=== PATIENT | female | born 1980 | race Caucasian/White ===

== ENCOUNTER 2023-01-31 15:36 | Inpatient (IN) | payer MEDICAID, SELFPAY ==
[2023-01-31] VITALS (21 sets, daily range): BP systolic 123–165; BP diastolic 79–105; PULSE 62–84; RESP 12–24; TEMP 36.6–37; O2SAT 97–100; BMI 33.7
--- NOTE | ~2023-01-31 | US_ITS ---
US abdomen limited INDICATION: Elevated liver function tests. PROCEDURE: Realtime right upper abdominal ultrasound. COMPARISON: No prior studies for comparison. FINDINGS: The pancreas is normal without focal mass or pancreatic ductal dilation. Liver echotexture is normal without focal mass or intrahepatic biliary dilatation. There is normal directional flow i n the portal vein. The gallbladder is surgically absent. Common bile duct measures 3 mm. No sonographic Ramon's sign. IMPRESSION: 1: Normal limited abdominal ultrasound. Reviewed, dictated and finalized at location B. TMENT COORDINATOR
--- NOTE | ~2023-01-31 | CT_ITS ---
EXAMINATION: CT abdomen pelvis w con DATE: 02/03/2023 11:32 INDICATION: Abdomen and flank pain post coronary angiogram TECHNIQUE: Computed tomography (CT) of the abdomen and pelvis was performed with 100 mL Omnipaque-350 intravenous contrast. Automated exposure control and iterative reconstruction technique were employe d. The dose-length product was 760.71 mGy-cm. COMPARISON: 02/01/2023 FINDINGS: Lung bases are clear. Heart size is normal. No pericardial or pleural effusion. Small sliding-type hi atal hernia. Normal caliber common bile duct measuring up to 6 mm in diameter and mild intrahepatic b iliary ductal dilation which is within normal limits post cholecystectomy with clips the gallbladder fossa. Spleen, pancreas, bilateral adrenal glands and right kidney are normal. 1.6 similar exophytic cyst arising from the lower pole of the left kidney. Bowels including the appendix are normal. Bladde r is normal. The uterus is not identified and has likely been surgically resected. No free intraperit smyth gas or fluid. No pathologically enlarged abdominal or pelvic lymphadenopathy. There is some str anding in the right inguinal region likely related to recent vascular access for the reported coronar y angiogram. No larger loculated hematoma, active contrast extravasation, AV fistula or aneurysm. Mil d lower thoracic and minimal lumbar spondylosis. IMPRESSION: 1. No acute intra-abdominal/pelvic process. 2. Focal stranding at the right inguinal region consistent with expected changes of recent vascular a ccess. No associated hematoma, active contrast extravasation, AV fistula or aneurysm. 3. Small sliding-type hiatal hernia. Reviewed, dictated and finalized at location A. INE LEARNING INTERN IMPRESSION: 1. No acute intra-abdominal/pelvic process. 2. Focal stranding at the right inguinal region consistent with expected change s of recent vascular access. No associated hematoma, active contrast extravasat ion, AV fistula or aneurysm. 3. Small sliding-type hiatal hernia.
--- NOTE | ~2023-01-31 | XR_ITS ---
EXAMINATION: XR chest 2V 01/31/2023 16:03 INDICATION: Chest pain. CHF. PROCEDURE: 2 view chest COMPARISON: No prior studies for comparison. FINDINGS: The lungs are clear. The cardiomediastinal silhouette is within normal limits. There are no pleural effusions. There is no pneumothorax suspected. IMPRESSION: 1: NO ACUTE CARDIOPULMONARY DISEASE. Reviewed, dictated and finalized at location A. PIPELINE OPERATOR
--- NOTE | ~2023-01-31 | CT_ITS ---
EXAMINATION: CT chest abdomen pelvis wo con DATE: 02/01/2023 11:39 INDICATION: Chest and abdominal pain. TECHNIQUE: Computed tomography (CT) of the chest, abdomen, and pelvis was performed without intraveno us contrast. Automated exposure control and iterative reconstruction technique were employed. The dos e-length product was 975.89 mGy-cm. COMPARISON: None FINDINGS: CHEST CT: Lungs are clear with no pneumonia, pulmonary edema or other pulmonary infiltrates. No pleural effusio n or pneumothorax. Heart size is normal. Atherosclerotic coronary artery calcific lesion. No pericard ial effusion. Thoracic aorta is normal in caliber. No pathologically enlarged thoracic lymphadenopath y. Small sliding-type hiatal hernia. ABDOMEN/PELVIS CT: Cholecystectomy clips at the gallbladder fossa. Liver, spleen, pancreas, bilateral adrenal glands and kidneys are normal. Moderate to large amount stool scattered throughout the colon. Small bowel and a ppendix are normal. Bladder is normal. The uterus and bilateral ovaries are not identified and have l ikely been surgically resected. No free intraperitoneal gas or fluid. No pathologically enlarged abdo sandeep or pelvic lymphadenopathy. Mild thoracic spondylosis. IMPRESSION: 1. No acute intrathoracic, abdominal or pelvic process. Reviewed, dictated and finalized at location A. WOOD CUTTER
--- NOTE | 2023-01-31 15:41 | ECG_ITS ---
Measurements Intervals [place] Rate: 69 P: 71 TX: 143 QRS: 85 QRSD: 77 T: 43 QT: 392 QTc: 421 Interpretive Statements SINUS RHYTHM NORMAL ECG NO PREVIOUS ECG AVAILABLE FOR COMPARISON Electronically Signed On 02-01-2023 11:48:32 ASSISTANT PROFESSOR OF SOCIOLOGY by Boone Cheema M.D.
--- NOTE | 2023-01-31 18:16 | ED.CHESTPAIN ---
HPI - Chest Pain General Chief Complaint: Chest Pain Stated Complaint: chest pain Time Seen by Provider: 01/31/23 18:16 Source: patient Limitations: no limitations History of Present Illness HPI narrative: This is a 42 yo female who presents with complaint of chest pain that started 2 days ago and is associated with shortness of breath. She has had a non productive cough. Pain radiates to left arm and left jaw. 10/10 in severity. It has been occuring intermittently with episodes lasting approximately 20 minutes. No fevers but clammy. Lying on her right side with her knees up helps. She has not been taking care of herself or her health for some time while caring for her who of cancer in hospice care. She has been nauseated. This has never happened before. Does not follow with a dowel machine operator. Attempted to undergo a stress test years ago but terminated due to neuropathy. At one time was told eh had CHF but is not taking any medications other than her gabapentin. Not on aspirin. No LE edema. Quit smoking in the past 6 weeks, previously 1/3 PPD. Never diagnosed with HTN or HLD. Reports history of TIA x3. Related Data Home Medications Medication Instructions Recorded Confirmed gabapentin 600 mg tablet 600 mg PO BID 01/31/23 01/31/23 Allergies Allergy/AdvReac Type Severity Reaction Status Date / Time butorphanol [From Stadol] Allergy Hives Verified 02/01/23 03:24 cephalexin [From Keflex] Allergy Seizure Verified 01/31/23 18:59 nalbuphine [From Nubain] Allergy Aggression Verified 02/01/23 03:24 lisinopril AdvReac Swelling Verified 02/01/23 03:24 of the Eyes [facility] Past Medical History Medical History (Updated 02/02/23 @ 02:39 by Marina Loaiza MD) Bladder prolapse No surgical intervention History of biliary stent insertion History of CHF (congestive heart failure) Peripheral neuropathy Tobacco dependence in remission Surgical History Surgical History History of total hysterectomy with bilateral salpingo-oophorectomy (BSO) History of tubal ligation Family History Family History Mother , at 59 years old Family history of premature CAD, Onset Age: 29 Hx of CABG, Onset Age: 47 Diabetes mellitus COPD (chronic obstructive pulmonary disease) with emphysema CHF (congestive heart failure) Grandparent Family history of premature CAD Father Unknown family medical history Social History Social History (Updated 02/02/23 @ 02:32 by Marina Loaiza MD) Social History: The patient lives alone in [facility]. She is in the area visiting friends. She has been since 2020. She had 3 biologic children and adopted 1 child. Her only living child suffers from severe depression and psychiatric illness. She lost 1 child at at 8 months gestation and another due to drug overdose. Her adopted child from trauma. She smoked 1/3 to 1/4 pack of cigarettes per day from her early 20s but quit smoking November 2022. Has grandchildren. Code status: Full code Surrogate decision maker: Babs (sister) Smoking packs per day: 0.25 Smoking cigarettes per day: 5.0 Years smoked: 20 Smoking pack-years: 5.00 Smoking status: Former smoker Tobacco type: cigarettes Second hand tobacco smoke exposure: Yes Smoking end date: 12/23/22 Alcohol intake: current Alcohol use details: She occasionally drinks alcohol but only in small amounts or moderation. Substance use: current Substance use type: marijuana Other substance usage details: Marijuana occasionally, Wine once or twice a year Last use: Thanksgiving Lack of Transportation: YES Lack of Food: Never True Current Housing: I Have Housing Concerned About Future Housing: No Difficulty Paying Gas/Electric Bills: No Difficulty Paying for Meds: No Currently Unemployed: No Educati
[2023-01-31 18:35] LABS: Basophils Absolute Auto 0.1 K/mm3 (0.0-0.1); Basophils Percent Auto 0.7 % (0.2-1.2); Eosinophils Absolute Auto 0.1 K/mm3 (0-0.3); Eosinophils Percent Auto 1.3 % (0-4.4); Hematocrit 43.9 % (37.0-47.0); Hemoglobin 14.3 g/dL (12.0-15.0); Immature Granulocyte Absolute 0.03 K/mm3 (0.00-0.031); Immature Granulocyte Percent A 0.4 % (0-0.5); Lymphocytes Absolute Auto 2.75 K/mm3 (0.9-3.2); Lymphocytes Percent Auto 36.3 % (18.3-44.2); Mean Corpuscular HGB Conc 32.6 g/dl (32-36); Mean Corpuscular Hemoglobin 29.9 pg (26-34); Mean Corpuscular Volume 91.8 fl (80-100); Mean Platelet Volume 9.4 fl (7.4-10.4); Monocytes Absolute Auto 0.5 K/mm3 (0.1-0.6); Monocytes Percent Auto 6.3 % (2.6-8.5); Neutrophils Absolute Auto 4.2 K/mm3 (1.3-6.7); Platelet Count Result 320 k/mm3 (150-375); Red Blood Count 4.78 M/mm3 (4.2-5.4); Red Cell Distribution Width 12.7 % (11.5-14.5); White Blood Count 7.6 K/mm3 (4.5-10.0)
[2023-01-31 18:44] LABS: INR 0.9; Prothrombin Time 12.1 Seconds (11.1-14.7)
[2023-01-31 18:45] LABS: Partial Thromboplastin Time 27.2 SECONDS (22.3-36.8)
[2023-01-31 18:49] LABS: Alanine Aminotransferase 26 U/L (6-35); Alkaline Phosphatase 135 U/L (38-126); Anion Gap 7 mmol/L (8-16); Aspartate Amino Transferase 31 U/L (14-36); Bilirubin,Total 0.6 mg/dL (0.2-1.3); Blood Urea Nitrogen 22 mg/dL (7-17); Calcium 8.9 mg/dL (8.4-10.2); Carbon Dioxide 26 mmol/L (22-30); Chloride 104 mmol/L (98-107); Estimated Glomerular Filt Rate > 60; Glucose 248 mg/dL (65-110); Lipase 146 U/L (23-300); Potassium 4.4 mmol/L (3.4-5.0); Sodium 137 mmol/L (137-145)
[2023-01-31] MEDS: ASPIRIN 81 MG CHEWABLE TABLET 324 MG PO (19:02)
[2023-01-31] MEDS: ACETAMINOPHEN 500 MG TABLET 1000 MG PO (19:02)
[2023-01-31] MEDS: ONDANSETRON INJ 4 MG/2 ML VIAL IV PUSH (19:03)
[2023-01-31 19:11] LABS: Troponin I 0.087 ng/mL (0.000-0.034)
--- NOTE | 2023-01-31 19:26 | PC.NURSE ---
Report received from SOUMYA Barry. Assumed care of patient at this time.
[2023-01-31 19:31] LABS: NT Pro B Type Natriuretic Pept 279 pg/mL (19.9-100)
[2023-01-31 19:49] LABS: Hemoglobin A1C 9.8 % (<5.7)
[2023-01-31 19:52] LABS: Cholesterol 194 mg/dL (0-200); HDL Direct 61 mg/dL; LDL Cholesterol Direct 95 mg/dL; Triglycerides 186 mg/dL (<150)
[2023-01-31] MEDS: ENOXAPARIN 80 MG/0.8 ML SYRINGE 75 MG SUB-Q (20:15)
--- NOTE | 2023-01-31 21:21 | PC.NURSE ---
Attempted to call report, was told RN will call back.
--- NOTE | 2023-01-31 21:35 | PC.NURSE ---
VORB per given 1 Nitro SL.
--- NOTE | 2023-01-31 21:37 | PC.NURSE ---
1 nitro SL tab given at 2136 per MATHEUS Atkins who is at bedside for patients c/o cp.
--- NOTE | 2023-01-31 21:59 | ADMGEN ---
This patient, Hannah Granados, was admitted to IMU Room 205-02 on 01/31/23 at 2149. Patient/family oriented to hospital policies and general routines including ID bracelet, bed and alarms, visiting hours, pain management, procedures, bathroom and other care routines, personal items, smoking policy, room service/diet, and visiting hours. Information on how to activate the Rapid Response Team has been discussed. Patient/Family are encouraged to report perceived risks to care and to ask questions if they do not understand what they are told or what they should do.
[2023-01-31 22:08] LABS: Glucose Point of Care 189 mg/dl (65-105)
--- NOTE | 2023-01-31 22:57 | ECG_ITS ---
Measurements Intervals [place] Rate: 66 P: 75 HI: 144 QRS: 79 QRSD: 86 T: 46 QT: 426 QTc: 448 Interpretive Statements SINUS RHYTHM NORMAL ECG COMPARED TO ECG 01/31/2023 15:47:12 NO SIGNIFICANT CHANGES Electronically Signed On 02-01-2023 11:53:38 HYPO DIPPER by Boone Cheema M.D.
[2023-01-31] MEDS: NITROGLYCERIN OINTMENT 1 INCH DOSE TRANSDERM (23:08)
[2023-01-31] MEDS: NITROGLYCERIN SL 0.4 MG TABLET SUBLINGUAL (23:08)
[2023-01-31] MEDS: LACTATED RINGERS 1,000 ML 125 ML IV CONT (23:10)
--- NOTE | 2023-01-31 23:13 | PC.NURSE ---
While obtaining admission questions, patient developed sudden onset of 10/10 chest pain radiating to the left neck and jaw. Dr. Valencia notified, NTG SL X1 given, B/P 126/79, NSR 73. 1 inch NTG paste applied to left chest, EKG done. Chest pain 5/10 after SL NTG, and subsided after NTG paste applied. Lab here attempting to draw 3 hour troponin.
--- NOTE | 2023-01-31 23:18 | PM.IMHP ---
H&P: HPI History of Present Illness Date/Time: 01/31/23 21:25 Chief Complaint: Chest pain Narrative: 42-year-old female with a past medical history of COPD, peripheral neuropathy and ?borderline diabetes? who presented to the ER with left chest pain jaw pain and arm pain. Patient reports that she began having chest pain at rest yesterday. It woke her from sleep. Pain was a 10/10 intensity at its worse is accompanied by nausea and diaphoresis. She felt heaviness in her chest. The pain with last for 10-15 minutes and then would resolve. She denies any heartburn symptoms. She does have a significant family history of premature coronary artery disease with her maternal grandmother having her 1st heart attack at age 32 and her mother having her 1st heart attack at age 29. Her mother had a CABG at age 47. The patient reports that she has been told that her the sugars are borderline for diabetes in the past. She does have peripheral neuropathy managed with Neurontin She has poor dentition is unchanged from baseline. She is a former smoker she quit smoking 6 weeks ago. Prior to quitting she smoked 1/3 to 1/4 pack per day. At the time of my evaluation she was reporting 10/10 pain that started in the left jaw all going down the left neck down her left shoulder into her arm and radiated to the substernal area. Pain was relieved with nitro. She denies prior history of known coronary artery disease. The patient reports that after chest pain resolves she feels extremely fatigued. Patient lives in [facility] and has been in the area for last 2 weeks visiting friends. Review of Systems Review of Systems: 12 systems were reviewed with pertinent positives and negatives per HPI. Except as documented in the HPI, all other systems were reviewed and are negative. [facility] Past Medical History Medical History (Updated 01/31/23 @ 23:45 by Shannon Valencia DO) Bladder prolapse No surgical intervention History of biliary stent insertion Peripheral neuropathy Tobacco dependence in remission Surgical History Surgical History (Updated 01/31/23 @ 23:34 by Shannon Valencia DO) History of total hysterectomy with bilateral salpingo-oophorectomy (BSO) History of tubal ligation Family History Family History (Updated 01/31/23 @ 23:36 by Shannon Valencia DO) Mother , at 59 years old Family history of premature CAD, Onset Age: 29 Hx of CABG, Onset Age: 47 Grandparent Family history of premature CAD Father Unknown family medical history Social History Social History (Updated 01/31/23 @ 23:39 by Shannon Valencia DO) Social History: The patient lives alone in [facility]. She is in the area visiting friends. She has been since 2020. She had 3 biologic children and adopted 1 child. Her only living child suffers from severe depression and psychiatric illness. She lost 1 child at at 8 months gestation and another due to drug overdose. Her adopted child from trauma. She smoked 1/3 to 1/4 pack of cigarettes per day from her early 20s but quit smoking November 2022. Code status: Full code Surrogate decision maker: Babs (sister) Smoking packs per day: 0.25 Smoking cigarettes per day: 5.0 Years smoked: 20 Smoking pack-years: 5.00 Smoking status: Former smoker Tobacco type: cigarettes Second hand tobacco smoke exposure: Yes Smoking end date: 12/23/22 Alcohol intake: current Alcohol use details: She occasionally drinks alcohol but only in small amounts or moderation. Substance use: current Substance use type: marijuana Other substance usage details: Marijuana occasionally, Wine once or twice a year Last use: Thanksgiving Lack of Transportation: YES Lack of Food: Never True Current Housing: I Have Housing Concerned About Future Housing: No Difficulty Paying Gas/Electric Bills: No Difficulty Paying for Meds: No Currently Unemployed: No Educati
[2023-02-01] VITALS (28 sets, daily range): BP systolic 91–145; BP diastolic 56–93; PULSE 57–87; RESP 12–18; TEMP 35.8–36.9; O2SAT 95–100
[2023-02-01 00:03] LABS: Troponin I 0.132 ng/mL (0.000-0.034)
[2023-02-01 00:32] LABS: Amphetamine Screen Urine Negative (Negative); Barbiturate Screen Urine Negative (Negative); Benzodiazepines Screen Urine Negative (Negative); Cannabinoid Screen Urine Negative (Negative); Cocaine Screen Urine Negative (Negative); Methadone Screen Urine Negative (Negative); Opiate Screen Urine Negative (Negative); Phencyclidine Screen Urine Negative (Negative)
[2023-02-01] MEDS: SODIUM CHLORIDE 0.9% IV 1,000 ML 100 ML IV CONT ×4 (00:56→21:43)
[2023-02-01] MEDS: ONDANSETRON INJ 4 MG/2 ML VIAL IV PUSH ×4 (02:49→17:33)
[2023-02-01 04:43] LABS: Troponin I 0.166 ng/mL (0.000-0.034)
[2023-02-01] MEDS: NITROGLYCERIN OINTMENT 1 INCH DOSE TRANSDERM (06:12)
[2023-02-01] MEDS: ACETAMINOPHEN 325 MG TABLET 650 MG PO ×2 (06:14→16:18)
[2023-02-01 08:12] LABS: Troponin I 0.196 ng/mL (0.000-0.034)
[2023-02-01 08:17] LABS: Glucose Point of Care 185 mg/dl (65-105)
[2023-02-01] MEDS: MORPHINE SULFATE (*CRX) 2 MG/ML INJ IV PUSH ×5 (08:27→20:52)
[2023-02-01] MEDS: EMPAGLIFLOZIN 10 MG TABLET PO (08:28)
[2023-02-01] MEDS: GABAPENTIN 300 MG CAPSULE 600 MG PO ×2 (08:28→20:45)
[2023-02-01] MEDS: ASPIRIN 81 MG ENTERIC TABLET PO (08:28)
[2023-02-01] MEDS: ENOXAPARIN 80 MG/0.8 ML SYRINGE 75 MG SUB-Q (08:29)
--- NOTE | 2023-02-01 09:04 | PM.CNCAR ---
Assessment and Plan Assessment and plan (1) NSTEMI (non-ST elevated myocardial infarction): Code(s): I21.4 - Non-ST elevation (NSTEMI) myocardial infarction Status: Acute Assessment and Plan: Presentation consistent with acute coronary syndrome/NSTEMI with stuttering chest pain over the preceding 2 days with more persistent chest pain nitroglycerin responsive with elevated troponin with risk factors including strong family history premature atherosclerosis, diabetes mellitus, history of tobacco abuse and hypertension. -continue aspirin 81 mg daily, initiate atorvastatin 40 mg at bedtime. -ideally, would add beta-angel therapy, however, patient has resting heart rate in the 50s to low 60s so will hold off for now monitor. -chest pain has been somewhat difficult to control although responsive to sublingual nitroglycerin. Discussed case with my interventional partner Dr. Olea who recommend transfer to ICU for nitroglycerin infusion for improved control for unstable angina. Discussed with critical care physician Dr. Gaytan who agrees. Explained plan of care to the patient. All questions answered to her satisfaction. Unfortunate, patient did receive full-dose enoxaparin 75 mg subcutaneous. We discussed increase bleeding complication risk should she proceed to coronary angiography at this time yet if symptoms are severe, unrelenting and or her clinical circumstances dictates more urgent coronary angiography we will proceed as warranted. However, preference would be to control her symptoms if possible and allow enoxaparin to wear off to reduce bleeding complication risk. Patient verbalized understanding and agreed with plan of care. We discussed the high risk nature of her clinical circumstances with evidence of active injury pattern with elevated troponin and ongoing symptoms. Her repeat ECG bedside is normal without acute ischemic changes or ST elevation which is reassuring. Nonetheless, if we are unable to control her symptoms or hemodynamic instability or new concerning ECG changes will proceed to urgent angiography. We discussed the high risk nature of the circumstance of the need for close observation. She will notify us immediately should she have progressive chest pain or new concerning symptoms as instructed. -repeat troponin -discontinue enoxaparin. If systemic anticoagulation to be continued in the interval heparin infusion will be preferable for this could not be initiated until this evening around 2029. -keep NPO for now. -2D echocardiogram to assess LV function/wall motion abnormality, valve pathology pulmonary pressures. -continue telemetry. I spent 83 minutes in the care of this patient including examination and discussions at bedside with patient, consultation and discussion with colleagues and the treatment team, chart review, medical decision-making, and documentation. (2) Hypertension associated with chronic kidney disease due to type 2 diabetes mellitus: Code(s): E11.22 - Type 2 diabetes mellitus with diabetic chronic kidney disease; I12.9 - Hypertensive chronic kidney disease with stage 1 through stage 4 chronic kidney disease, or unspecified chronic kidney disease Status: Acute Assessment and Plan: BP improved from admission. Patient has reported lisinopril/ARIELLE-inhibitor allergy. Consider ARB if BP suboptimally controlled. (3) Family history of premature CAD: Code(s): Z82.49 - Family history of ischemic heart disease and other diseases of the circulatory system Status: Acute Assessment and Plan: Reports strong family history premature atherosclerosis with mother having acute cardiovascular event in her late 20s, bypass surgery in her 40s and dying of cardiac complications in her late 50s. Aggressive medical management as above. (4) Hypertriglyceridemia: Code(s): E78.1 - Pure hyperglyceridemia Status: Acute Assessment and Plan: Goal LDL less than 70. Initiate a
[2023-02-01] MEDS: NITROGLYCERIN SL 0.4 MG TABLET SUBLINGUAL ×2 (09:20→09:47)
--- NOTE | 2023-02-01 09:23 | ECG_ITS ---
Measurements Intervals [place] Rate: 71 P: 68 PA: 142 QRS: 72 QRSD: 82 T: 36 QT: 421 QTc: 459 Interpretive Statements SINUS RHYTHM NORMAL ELECTROCARDIOGRAM COMPARED TO ECG 01/31/2023 23:01:59 NO SIGNIFICANT CHANGES Electronically Signed On 02-02-2023 15:29:05 LEADERSHIP INTERN by Arturo Rea M.D.
--- NOTE | 2023-02-01 09:30 | PC.NURSE ---
This patient, Hannah Granados, was transferred to ICU 1 on 02/01/23 at 0930. Personal belongings sent with patient. Report given to April DOOLEY. Appropriate documentation sent with patient.
--- NOTE | 2023-02-01 09:35 | PC.NURSE ---
This patient, Hannah Granados, was received from [ 205-2] on 02/01/23 at 0935. Patient/family oriented to unit policies and routines
[2023-02-01] MEDS: NITROGLYCERIN/D5W 200 MCG/ML 50 MG/250 ML BTL IV CONT (09:50)
[2023-02-01 10:30] LABS: Troponin I 0.185 ng/mL (0.000-0.034)
--- NOTE | 2023-02-01 10:59 | WPDCNINT ---
Assessment and Plan Assessment and plan (1) NSTEMI (non-ST elevated myocardial infarction): Code(s): I21.4 - Non-ST elevation (NSTEMI) myocardial infarction Status: Acute Assessment and Plan: Patient with substernal chest pain associated with diaphoresis, nausea, shortness of breath. Radiating to the left arm. -strong family history -flat troponins -no EKG changes -appreciate cardiology evaluation and recommendations -will start nitroglycerin infusion evaluate her chest pain -patient stated that she may have had gallstones, will check CT scan of the abdomen and pelvis without contrast -echocardiogram has been ordered -continue aspirin, -on therapeutic Lovenox -morphine for pain (2) Type 2 diabetes mellitus: Qualifiers: Diabetes mellitus regional intermodal truck driver insulin use: without long-term use Diabetes mellitus complication status: with hyperglycemia Qualified Code(s): E11.65 - Type 2 diabetes mellitus with hyperglycemia Code(s): E11.9 - Type 2 diabetes mellitus without complications Status: Acute Assessment and Plan: Will add Accu-Cheks and sliding scale in (3) Hyperlipidemia: Code(s): E78.5 - Hyperlipidemia, unspecified Status: Acute Assessment and Plan: Continue statin Plan DVT prophylaxis: Therapeutic Lovenox Stress ulcer prophylaxis: Not indicated Nutrition: NPO Code Status: Full Critical Care Time Spent: 47 minutes Due to a high probability of clinically significant, life threatening deterioration, the patient required my highest level of preparedness to intervene emergently and I personally spent this critical care time directly and personally managing the patient. This critical care time included obtaining a history; examining the patient; pulse oximetry; ordering and review of studies; arranging urgent treatment with development of a management plan; evaluation of patient's response to treatment; frequent reassessment; and discussions with other providers. It was exclusive of separately billable procedures and treating other patients and teaching time. Please see Assessment and Plan section and the rest of the note for further information on patient assessment and treatment This dictation may have been done utilizing a voice recognition system. Attempts have been made to correct errors. However, there may be uncorrected grammatical, spelling, and recognitions errors present. Crtts Consult Note Consult date: 02/01/23 Reason for consult: Chest pain HPI: Hannah Granados is a 42 year old female past medical history of bladder prolapse, history of biliary stent placement, of neuropathy, c tobacco dependence presented the ED on 01/31/2023 S with complains of chest pain that started 1 day prior to admission, it walker from asleep, 10/10 in intensity. Accompanied with nausea, diaphoresis and radiation to the left arm. Patient has a significant family history of premature coronary artery disease. Patient was started on therapeutic Lovenox, nitro paste, beta-angel, aspirin and statin. Patient states did she quit smoking 6 weeks ago and prior to that she smoked 1/3 to 1/4 pack per day for many years. She also occasionally smokes marijuana. Denies any illicit drug use. Occasional alcohol use. Patient was admitted to the intermediate unit. On 02/01/2023: Patient continued to have increasing chest pain 10/10 in intensity despite being on nitro paste. Patient has received full-dose Lovenox this morning, cardiology evaluated the patient and transferred the patient to the ICU for nitroglycerin infusion. Patient seen and examined upon arrival to the ICU. Complains of substernal chest tightness, 10/10 intensity. Complains of mild shortness of breath, no diaphoresis but positive radiation to the left arm. Also complains of nausea but no vomiting. Patient is hemodynamically stable, still has been started on nitroglycerin infusion. Review of Systems Review of Infof[employer]e
[2023-02-01 12:38] LABS: Glucose Point of Care 173 mg/dl (65-105)
--- NOTE | 2023-02-01 13:06 | P.PCNBED_ITS ---
Procedures Central Line Placement Right Femoral: Central Line Date: 02/01/23 Central Line Time: 13:06 Discussed w/ the patient/family/POA,the placement of a central venous catheter, including its clinical necessity/indication & associated potential risks, benifits and alternatives.: Yes The patient/family/POA understand(s) and acknowledge(s) the need to proceed with central venous catheter insertion as an important element of the patient's clinical management.: Yes Consent: I have discussed with the patient and/or surrogate, the non-emergent placement of a central venous catheter, including its clinical necessity/indication and associated potential risks and complications. The patient and/or surrogate understand(s) and acknowledge(s) the need to proceed with central venous catheter insertion as an important element of the patient's clinical management. Time Out Performed: Yes Patient Position: supine Patient placed on monitor/pulse ox: Yes Provider Prep: mask, sterile gown, sterile gloves, Max. sterile barrier precautions, cap and hand hygiene with conventional soap/water or alcohol based hand rub Central line prep: 2% Chlorhexidine scrub Local anesthesia used: lidocaine 1% Amount of anesthesia used (ml): 3 Sterile US Technique with sterile gel/sterile probe covers: Yes Central line lumen inserted: triple [place]alander: 12 Length (cm): 16 Depth of Insertion (cm): 16 Post Procedure: sutured in place, good blood return, all ports aspirated, flushed, capped, transparent dressing, hemostatic product, antimicrobial product, securement product and aseptic technique maintained throughout procedure Complications: none
[2023-02-01 16:25] LABS: Glucose Point of Care 244 mg/dl (65-105)
[2023-02-01] MEDS: INSULIN ASPART (*BKC) 100 UNITS/ML SUB-Q ×2 (17:02→23:25)
--- NOTE | 2023-02-01 19:20 | ECG_ITS ---
Measurements Intervals [place] Rate: 62 P: 65 SD: 142 QRS: 76 QRSD: 83 T: 18 QT: 416 QTc: 423 Interpretive Statements SINUS RHYTHM WITH SINUS ARRHYTHMIA NORMAL ELECTROCARDIOGRAM 01/31/2023 23:01:59 NO DIFFERENCE Electronically Signed On 02-02-2023 14:59:41 REPORTING LEAD by Arturo Rea M.D.
[2023-02-01 19:53] LABS: Basophils Percent Auto 0.7 % (0.2-1.2); Eosinophils Absolute Auto 0.1 K/mm3 (0-0.3); Eosinophils Percent Auto 1.2 % (0-4.4); Hematocrit 36.4 % (37.0-47.0); Hemoglobin 11.6 g/dL (12.0-15.0); Immature Granulocyte Absolute 0.04 K/mm3 (0.00-0.031); Immature Granulocyte Percent A 0.7 % (0-0.5); Lymphocytes Absolute Auto 1.81 K/mm3 (0.9-3.2); Lymphocytes Percent Auto 31.8 % (18.3-44.2); Mean Corpuscular HGB Conc 31.9 g/dl (32-36); Mean Corpuscular Hemoglobin 29.7 pg (26-34); Mean Corpuscular Volume 93.3 fl (80-100); Mean Platelet Volume 9.5 fl (7.4-10.4); Monocytes Absolute Auto 0.5 K/mm3 (0.1-0.6); Monocytes Percent Auto 8.1 % (2.6-8.5); Neutrophils Absolute Auto 3.3 K/mm3 (1.3-6.7); Neutrophils Percent Auto 57.5 % (45.5-73.1); Platelet Count Result 288 k/mm3 (150-375); Red Cell Distribution Width 12.8 % (11.5-14.5); White Blood Count 5.7 K/mm3 (4.5-10.0)
[2023-02-01 20:03] LABS: INR 0.9; Prothrombin Time 12.8 Seconds (11.1-14.7)
[2023-02-01 20:04] LABS: Partial Thromboplastin Time 32.9 SECONDS (22.3-36.8)
[2023-02-01 20:23] LABS: Troponin I 0.118 ng/mL (0.000-0.034)
[2023-02-01] MEDS: HEPARIN SOD/D5W 100 UNITS/ML 25,000 UNITS/250 ML BAG 7 UNITS IV CONT (20:44)
[2023-02-01] MEDS: HEPARIN SODIUM 5,000 UNITS/ML VIAL 3500 UNITS IV PUSH (20:44)
[2023-02-01] MEDS: ATORVASTATIN 40 MG TABLET PO (20:53)
[2023-02-01 22:53] LABS: Glucose Point of Care 219 mg/dl (65-105)
[2023-02-02] VITALS (32 sets, daily range): BP systolic 89–150; BP diastolic 56–96; PULSE 64–86; RESP 10–20; TEMP 36.6–37.2; O2SAT 91–100; BMI 33.0
[2023-02-02] MEDS: NITROGLYCERIN/D5W 200 MCG/ML 50 MG/250 ML BTL 22.5 MG IV CONT (01:10)
[2023-02-02] MEDS: ACETAMINOPHEN 325 MG TABLET 650 MG PO ×2 (01:10→05:23)
[2023-02-02] MEDS: MORPHINE SULFATE (*CRX) 2 MG/ML INJ IV PUSH ×6 (03:57→23:49)
[2023-02-02 04:10] LABS: Basophils Percent Auto 0.5 % (0.2-1.2); Eosinophils Absolute Auto 0.1 K/mm3 (0-0.3); Eosinophils Percent Auto 1.8 % (0-4.4); Hematocrit 35.3 % (37.0-47.0); Hemoglobin 11.4 g/dL (12.0-15.0); Immature Granulocyte Absolute 0.04 K/mm3 (0.00-0.031); Immature Granulocyte Percent A 0.5 % (0-0.5); Lymphocytes Absolute Auto 1.67 K/mm3 (0.9-3.2); Lymphocytes Percent Auto 21.6 % (18.3-44.2); Mean Corpuscular HGB Conc 32.3 g/dl (32-36); Mean Corpuscular Hemoglobin 30.2 pg (26-34); Mean Corpuscular Volume 93.6 fl (80-100); Mean Platelet Volume 9.8 fl (7.4-10.4); Monocytes Absolute Auto 0.5 K/mm3 (0.1-0.6); Monocytes Percent Auto 6.7 % (2.6-8.5); Neutrophils Absolute Auto 5.3 K/mm3 (1.3-6.7); Neutrophils Percent Auto 68.9 % (45.5-73.1); Platelet Count Result 283 k/mm3 (150-375); Red Blood Count 3.77 M/mm3 (4.2-5.4); Red Cell Distribution Width 12.8 % (11.5-14.5); White Blood Count 7.7 K/mm3 (4.5-10.0)
[2023-02-02 04:21] LABS: Partial Thromboplastin Time 46.4 SECONDS (22.3-36.8)
[2023-02-02 04:34] LABS: Alanine Aminotransferase 399 U/L (6-35); Albumin Level 3.2 g/dL (3.5-5.1); Alkaline Phosphatase 156 U/L (38-126); Anion Gap 5 mmol/L (8-16); Aspartate Amino Transferase 383 U/L (14-36); Blood Urea Nitrogen 16 mg/dL (7-17); Calcium 8.5 mg/dL (8.4-10.2); Carbon Dioxide 25 mmol/L (22-30); Chloride 106 mmol/L (98-107); Estimated Glomerular Filt Rate > 60; Glucose 177 mg/dL (65-110); Phosphorus 4.6 mg/dL (2.5-4.5); Potassium 3.9 mmol/L (3.4-5.0); Sodium 136 mmol/L (137-145)
[2023-02-02] MEDS: HEPARIN SODIUM 5,000 UNITS/ML VIAL 4000 UNITS IV PUSH (05:05)
[2023-02-02] MEDS: ONDANSETRON INJ 4 MG/2 ML VIAL IV PUSH ×3 (05:23→20:33)
[2023-02-02] MEDS: SODIUM CHLORIDE 0.9% IV 1,000 ML 50 ML IV CONT (07:45)
[2023-02-02 08:09] LABS: Hepatitis B Surface Antigen Negative (Negative)
[2023-02-02 08:18] LABS: HAV RESULT Reactive (Negative); Hepatitis B Core IgM Result Negative (Negative)
[2023-02-02] MEDS: ASPIRIN 81 MG ENTERIC TABLET PO (08:21)
[2023-02-02 08:26] LABS: Hepatitis C Virus Antibody Negative (Negative)
--- NOTE | 2023-02-02 08:26 | PC.NURSE ---
To Director Of Individual Giving, IV [20 R FA and 20 L FA ]. Report given to [ Rafaela].
--- NOTE | 2023-02-02 08:46 | WPDMODSED ---
Moderate Sedation Note-Pt Data Patient Data Diagnosis: chest pain etiology unclear Present Complaint: chest pain Procedure to be performed/Plan: left heart catheterization Allergies Allergy/AdvReac Type Severity Reaction Status Date / Time butorphanol [From Stadol] Allergy Hives Verified 02/01/23 03:24 cephalexin [From Keflex] Allergy Seizure Verified 01/31/23 18:59 lisinopril AdvReac Swelling Verified 02/01/23 03:24 of the Eyes nalbuphine [From Nubain] AdvReac Aggression Verified 02/02/23 07:21 Home Medications Medication Instructions Recorded Confirmed Type gabapentin 600 mg tablet 600 mg PO BID 01/31/23 01/31/23 History Current Medications: Active Medications Acetaminophen (Acetaminophen 325 Mg Tablet) 650 mg PO Q4H PRN PRN Reason: Mild Pain (1-3) or Fever Last Admin: 02/02/23 05:23 Dose: 650 mg Aspirin (Aspirin 81 Mg Enteric Tablet) 81 mg PO QAM [facility] Last Admin: 02/02/23 08:21 Dose: 81 mg Atorvastatin Calcium (Atorvastatin 40 Mg Tablet) 40 mg PO HS [facility] Last Admin: 02/01/23 20:53 Dose: 40 mg Dextrose (Dextrose 50% 25 Gm/50 Ml Syringe) 12.5 gm IV PUSH PRN PRN; Protocol PRN Reason: Hypoglycemia Empagliflozin (Empagliflozin 10 Mg Tablet) 10 mg PO DAILY [facility] Last Admin: 02/01/23 08:28 Dose: 10 mg Gabapentin (Gabapentin 300 Mg Capsule) 600 mg PO Q12HR [facility] Last Admin: 02/01/23 20:45 Dose: 600 mg Glucagon (Glucagon For Inj 1 Mg Vial) 1 mg IM PRN PRN; Protocol PRN Reason: Hypoglycemia Glucose (Glucose Oral Gel 15 Gm Of Glucse In 37.5 Gm Tube) 15 gm PO PRN PRN; Protocol PRN Reason: Hypoglycemia Heparin Sodium (Porcine) (Heparin Sodium 5,000 Units/Ml Vial) 4,000 units IV PUSH PRN PRN PRN Reason: aPTT less than 55 seconds Last Admin: 02/02/23 05:05 Dose: 4,000 units Heparin Sodium (Porcine) (Heparin Sodium 5,000 Units/Ml Vial) 2,500 units IV PUSH PRN PRN PRN Reason: aPTT 55 - 70 seconds Dextrose (Dextrose 5% 1,000 Ml) 1,000 mls @ 100 mls/hr IVPB PRN PRN; Protocol PRN Reason: Hypoglycemia Sodium Chloride (Normal Saline Iv) 1,000 mls @ 50 mls/hr IV CONT .Q20H [facility] Last Admin: 02/02/23 07:45 Dose: 50 mls/hr Nitroglycerin/Dextrose (Nitroglycerin In 5% Dextrose 50 Mg) 50 mg in 250 mls @ 28.5 mls/hr IV CONT .Q8H47M [facility]; Protocol Last Titration: 02/02/23 07:46 Dose: 95 mcg/min, 28.5 mls/hr Heparin Sodium/Dextrose (Heparin Sodium/D5w 100 Units/Ml) 25,000 units in 250 mls @ 9 mls/hr IV CONT .Q24H [facility]; Protocol Last Titration: 02/02/23 05:06 Dose: 900 units/hr, 9 mls/hr Insulin Aspart (Insulin Aspart (*Bkc) 100 Units/Ml) 2 - 5 units SUB-Q TIDWM [facility]; Protocol Last Admin: 02/02/23 08:30 Dose: Not Given Insulin Aspart (Insulin Aspart (*Bkc) 100 Units/Ml) 1 - 2 units SUB-Q HS [facility]OL[facility]; Protocol Last Admin: 02/01/23 23:25 Dose: 1 units Morphine Sulfate (Morphine Sulfate (*Crx) 2 Mg/Ml Inj) 2 mg IV PUSH Q2H PRN PRN Reason: Intractable chest pain Last Admin: 02/02/23 06:00 Dose: 2 mg Nitroglycerin (Nitroglycerin Sl 0.4 Mg Tablet) 0.4 mg SUBLINGUAL Q5MIN PRN PRN Reason: Chest Pain Last Admin: 02/01/23 09:47 Dose: 0.4 mg Ondansetron HCl (Ondansetron Inj 4 Mg/2 Ml Vial) 4 mg IV PUSH Q4H PRN PRN Reason: Nausea Last Admin: 02/02/23 05:23 Dose: 4 mg Sedation/Anesthesia: No previous sedation/anesthesia problems (including family history). [facility] Past Medical History Medical History (Updated 02/02/23 @ 02:39 by Marina Loaiza MD) Bladder prolapse No surgical intervention History of biliary stent insertion History of CHF (congestive heart failure) Peripheral neuropathy Tobacco dependence in remission Surgical History Surgical History History of total hysterectomy with bilateral salpingo-oophorectomy (BSO) History of tubal ligation Family History Family History Mother , at 59 years old Family history of
--- NOTE | 2023-02-02 09:06 | WPDINTPN ---
Progress Note: A&P Assessment and Plan (1) NSTEMI (non-ST elevated myocardial infarction): Code(s): I21.4 - Non-ST elevation (NSTEMI) myocardial infarction Status: Acute Assessment and Plan: Patient with substernal chest pain associated with diaphoresis, nausea, shortness of breath. Radiating to the left arm. -strong family history -flat troponins -no EKG changes -appreciate cardiology evaluation and recommendations -remains on nitroglycerin infusion with increasing titration -patient stated that she may have had gallstones, CT scan of the chest abdomen pelvis was unremarkable -echocardiogram has been ordered -continue aspirin, heparin infusion -discussed with cardiology this morning, patient will be taken for angiography today -morphine for pain (2) Type 2 diabetes mellitus: Qualifiers: Diabetes mellitus penitentiary insulin use: without termite technician use Diabetes mellitus complication status: with hyperglycemia Qualified Code(s): E11.65 - Type 2 diabetes mellitus with hyperglycemia Code(s): E11.9 - Type 2 diabetes mellitus without complications Status: Acute Assessment and Plan: Continue Accu-Cheks and sliding scale in (3) Hyperlipidemia: Code(s): E78.5 - Hyperlipidemia, unspecified Status: Acute Assessment and Plan: Continue statin Plan DVT prophylaxis: Heparin infusion Stress ulcer prophylaxis: Not indicated Nutrition: NPO Code Status: Full Critical Care Time Spent: 32 minutes Discussed with Cardiology, patient will be taken to the cardiac catheterization for angiography Due to a high probability of clinically significant, life threatening deterioration, the patient required my highest level of preparedness to intervene emergently and I personally spent this critical care time directly and personally managing the patient. This critical care time included obtaining a history; examining the patient; pulse oximetry; ordering and review of studies; arranging urgent treatment with development of a management plan; evaluation of patient's response to treatment; frequent reassessment; and discussions with other providers. It was exclusive of separately billable procedures and treating other patients and teaching time. Please see Assessment and Plan section and the rest of the note for further information on patient assessment and treatment This dictation may have been done utilizing a voice recognition system. Attempts have been made to correct errors. However, there may be uncorrected grammatical, spelling, and recognitions errors present. Subjective Date/time seen: 02/02/23 09:06 Interval history: Reason for consult: Chest pain, NSTEMI requiring nitroglycerin infusion in the ICU 02/02/2023: Patient seen and examined the ICU, continues to complain of chest pain which has been intermittent in severity requiring titrating up the nitroglycerin infusion. Patient also complaining of nausea. Complains of shortness of breath but no diaphoresis. Patient is hemodynamically stable, afebrile, adequate urine Review of Systems Review of Systems: All systems reviewed & are unremarkable except as noted in HPI and below Exam Narrative: General: Pleasant female complaining of chest pain HEENT:? Pupils equal and reactive, sclera is clear, poor dentition with lack of teeth Neck:? Supple Respiratory:? Clear to auscultation bilaterally, adequate air entry, no wheezing Cardiac:? S1-S2 is normal, has regular rate and Abdomen:? Soft, non tender, non distended, normoactive bowel sounds Extremities:? No edema, palpable pedal pulses Neuro:? Patient is awake, alert, oriented, answers to questions appropriately and follows simple commands in all extremities Skin:? Warm and dry Psych:? Normal mentation and affect Objective Data Vital Signs Vital Signs: Vital Signs - 24 hr 02/01/23 10:00 02/01/23 09:50 02/01/23 10:34 Temperature Pulse Rate 67 67 68 Respirat
--- NOTE | 2023-02-02 09:27 | ECG_ITS ---
Measurements Intervals [place] Rate: 70 P: 72 [place]: 145 QRS: 78 QRSD: 81 T: -2 QT: 394 QTc: 426 Interpretive Statements SINUS RHYTHM NORMAL ELECTROCARDIOGRAM COMPARED TO ECG 02/01/2023 19:24:04 NO SIGNIFICANT CHANGES Electronically Signed On 02-02-2023 15:20:25 POULTRY BARN MANAGER by Arturo Rea M.D.
--- NOTE | 2023-02-02 09:30 | WPDCARDPROC ---
Cardiac Cath Procedure Note Date of procedure:: 02/02/23 Performing physician:: Arturo Rea MD Indication:: unstable angina Brief clinical history:: this is a 42-year-old woman without prior cardiac history who enters the hospital with chest pain felt to represent unstable angina pectoris. Despite aggressive treatment he continues to have ongoing retrosternal chest discomfort and being brought to the cardiac catheterization that setting. Electrocardiogram is negative for evidence of acute injury troponin levels are modestly elevated but flat. She has a history of smoking and non insulin-dependent diabetes Procedure Procedure performed:: left ventriculogram coronary angiogram PCI (STEPHON) to the distal circumflex Sedation/Medication given:: fentanyl 100 mg Versed 4 mg case start time 854 a.m. case end time 924 a.m. sedation provided by Vj Brady RN Access site:: right femoral artery Estimated blood loss:: 30 cc Procedure note:: patient was brought to the cardiac catheterization lab in the postabsorptive state where the right femoral triangle was prepared and draped in the usual fashion. Anesthesia was provided with 1% lidocaine infiltrated locally. Using the modified Seldinger technique the femoral artery was punctured and a 5 Luxembourger vascular sheath was placed. After this I used a 5 Luxembourger angled pigtail catheter to measure left-sided hemodynamics and to inject g in the 30 degree POLO projection. Following this the left coronary was engaged and injected using a 5 Luxembourger FL4 catheter. The right coronary was engaged and injected using a 5 Luxembourger JR4 catheter. The cineangiograms were reviewed and recommendations were made for PCI of the distal circumflex is detailed below. Prior to PCI the 5 Luxembourger sheath was upsized with a guidewire for a 6 Luxembourger sheath. The patient was then systemically anticoagulated with a bolus and infusion of Angiomax. Despite receiving heparin prior to arriving in the laboratory apparatus glass grinder ACT was 130. Prior to PCI the patient also received oral loading dose of clopidogrel 600 mg. Following PCI as described below the sheath was sutured into position she was taken back to the ICU for post PCI recovery. The patient was complaining of significant pain at the right femoral puncture site despite puncture site appears unremarkable there is no hematoma developing in there is normal perfusion in the right lower extremity. Findings:: Hemodynamics: The central aortic pressure is 116 over 68. left ventricle 116/10 end-diastolic 24. There is no gradient on pullback across the aortic valve. Left ventricle: The LV is normal in size all segments contract adequately the global ejection fraction is 50-55% there were no apparent regional wall motion abnormalities. The left main coronary artery is widely patent the left anterior descending is a moderate caliber artery extending down to the apex. The LAD and its branches have no atherosclerotic lesions. The circumflex is a moderate to large caliber vessel and is dominant to the posterior circulation. The marginal branches in the trunk of the circumflex appear unremarkable. Prior to the 1st posterior branch there is a discrete 95-99% stenosis in the circumflex. The posterior branches in the left PDA distal to this are free of disease. The right coronary artery is small in caliber and non dominant. There is a proximal 40-50% RCA stenosis once again it is a small non dominant artery giving rise to right ventricular branches only intervention: The left coronary artery was engaged using a 6 Luxembourger CLS 3.5 guiding catheter. I used a 0.01 for a BMW wire to traverse the circumflex lesion and this wire was advanced into the left PDA. The lesion was pre-dilated using a 2.5 x 20 mm Panterra balloon at 7 atmospheres and then the lesion was stented using a 2.75 x 15 mm Orsiro stent at 12 atmospheres with an excellent angiographic result there is no resi
[2023-02-02] MEDS: SODIUM CHLORIDE 0.9% IV 1,000 ML 125 ML IV CONT (09:45)
[2023-02-02 09:49] LABS: Cholesterol 150 mg/dL (0-200); HDL Direct 54 mg/dL; Triglycerides 165 mg/dL (<150)
[2023-02-02 10:00] LABS: LDL Cholesterol Direct 75 mg/dL
[2023-02-02 10:15] LABS: Glucose Point of Care 136 mg/dl (65-105)
[2023-02-02] MEDS: METOPROLOL SUCCINATE EXT REL 25 MG TABCR PO (10:16)
[2023-02-02] MEDS: GABAPENTIN 300 MG CAPSULE 600 MG PO ×2 (10:16→20:30)
[2023-02-02] MEDS: EMPAGLIFLOZIN 10 MG TABLET PO (10:17)
[2023-02-02 11:12] LABS: Partial Thromboplastin Time 127.1 SECONDS (22.3-36.8)
[2023-02-02 11:58] LABS: Glucose Point of Care 138 mg/dl (65-105)
[2023-02-02 13:18] LABS: Partial Thromboplastin Time 51.6 SECONDS (22.3-36.8)
[2023-02-02 14:21] LABS: Partial Thromboplastin Time 42.7 SECONDS (22.3-36.8)
[2023-02-02 15:23] LABS: Partial Thromboplastin Time 37.4 SECONDS (22.3-36.8)
[2023-02-02 16:46] LABS: Glucose Point of Care 152 mg/dl (65-105)
[2023-02-02] MEDS: ATORVASTATIN 40 MG TABLET PO (20:30)
[2023-02-02] MEDS: INSULIN ASPART (*BKC) 100 UNITS/ML SUB-Q (20:33)
[2023-02-02 20:36] LABS: Glucose Point of Care 216 mg/dl (65-105)
--- NOTE | 2023-02-02 21:23 | ECG_ITS ---
Measurements Intervals [place] Rate: 70 P: 67 PA: 143 QRS: 74 QRSD: 74 T: 32 QT: 367 QTc: 398 Interpretive Statements SINUS RHYTHM COMPARED TO ECG 02/02/2023 10:59:12 NO SIGNIFICANT CHANGES Electronically Signed On 02-03-2023 13:26:16 PRESS READER by tSephanie Boswell M.D.
[2023-02-02 23:28] LABS: Hematocrit 40.1 % (37.0-47.0); Hemoglobin 12.8 g/dL (12.0-15.0)
[2023-02-03] VITALS (16 sets, daily range): BP systolic 108–135; BP diastolic 60–82; PULSE 63–84; RESP 18–20; TEMP 35.8–36.8; O2SAT 95–98
[2023-02-03] MEDS: CALCIUM CARBONATE (TUMS) 500 MG (200 MG ELEMENTAL) PO
--- NOTE | 2023-02-03 | ECHO_ITS ---
Patient Info Name: Hannah Granados Age: 42 years : 1980 Gender: Female Ht: 59 in Wt: 166 lbs BSA: 1.81 m2 HR: 73 bpm BP: 135 / 79 mmHg Heart Rhythm: Sinus Rhythm Technical Quality: Fair Exam Date: 02/03/2023 1:14 PM Exam Location: Echo Lab Patient Status: Inpatient Admit Date: 02/01/2023 Staff Ordering Physician: Cat Ghotra Refractory Technician: Stacey Gutierrez RDCS Attending Provider: Shannon Valencia DO Referring Physician: Paradise STAPLES; Exam Type: CA echo dop color flow w con Study Info Indications - NSTEMI Complete two-dimensional, color flow and Doppler transthoracic echocardiogram is performed with contrast to opacify the left ventricle and to improve the deliniation of the left ventricle endocardial borders. Contrast/Agitated Saline Contrast/Ag. Saline: Definity Amount: 2.00 ml Administered By: Stacey Gutierrez RDCS Existing IV Access: Yes IV Access Condition: patent with no signs of infiltration Summary 1. Normal left ventricular size and thickness with good contractility of all segments. Ejection fraction 65-70%. Normal diastolic function. 2. Left atrial chamber dimension is mildly enlarged. 3. There is mild mitral valve regurgitation. 4. No pulmonary hypertension, estimated pulmonary arterial systolic pressure is 22 mmHg. 5. Normal sinus rhythm. Left Ventricle Left ventricular chamber dimension is normal. Left ventricular systolic function is normal, estimated at >70%. There is no increased left ventricular wall thickness. Left ventricular septal wall motion is normal. The left ventricular diastolic function is normal. Right Ventricle Right ventricular chamber dimension is normal. Right ventricular systolic function is normal. Left Atria Left atrial chamber dimension is mildly enlarged. Right Atria Right atrial chamber dimension is normal. Aortic Valve The aortic valve is trileaflet. There is no aortic valve sclerosis. There is no aortic valve stenosis. There is no aortic valve regurgitation. Pulmonic Valve The pulmonic valve is normal. There is no pulmonic valve stenosis. There is no pulmonic regurgitation. Mitral Valve The mitral valve has normal leaflets. There is no mitral valve stenosis. There is mild mitral valve regurgitation. Tricuspid Valve The tricuspid valve leaflets are normal. There is no significant tricuspid valve stenosis. There is trace tricuspid valve regurgitation. No pulmonary hypertension, estimated pulmonary arterial systolic pressure is 22 mmHg. Pericardium/Pleural The pericardium appears normal. There is no pericardial effusion. Inferior Vena Cava Normal inferior vena cava with >50% collapse upon inspiration consistent with Empty right atrial pressure, 10 mmHg. Aorta The aortic root size at the sinus of Valsalva is normal. The prox ascending aorta size is normal. Left Ventricular Outflow Tract Name Value Normal LVOT 2D LVOT Diameter 1.97 cm LVOT Doppler LVOT Peak Gradient 3 mmHg LVOT Mean Gradient 1 mmHg LVOT VTI 15.40 cm LVOT VTI/AV VTI Ratio 0.58
[2023-02-03] MEDS: MORPHINE SULFATE (*CRX) 2 MG/ML INJ IV PUSH ×4 (04:20→20:55)
[2023-02-03] MEDS: ONDANSETRON INJ 4 MG/2 ML VIAL IV PUSH (04:20)
--- NOTE | 2023-02-03 05:11 | ECG_ITS ---
Measurements Intervals [place] Rate: 65 P: 61 [place]: 144 QRS: 60 QRSD: 79 T: 12 QT: 383 QTc: 400 Interpretive Statements SINUS RHYTHM COMPARED TO ECG 02/02/2023 21:31:37 NO SIGNIFICANT CHANGES Electronically Signed On 02-03-2023 13:35:59 SUBSTITUTE CROSSING GUARD by Stephanie Boswell M.D.
[2023-02-03 05:28] LABS: Basophils Absolute Auto 0.1 K/mm3 (0.0-0.1); Basophils Percent Auto 0.5 % (0.2-1.2); Eosinophils Absolute Auto 0.2 K/mm3 (0-0.3); Eosinophils Percent Auto 1.8 % (0-4.4); Hematocrit 38.4 % (37.0-47.0); Hemoglobin 12.4 g/dL (12.0-15.0); Immature Granulocyte Absolute 0.04 K/mm3 (0.00-0.031); Immature Granulocyte Percent A 0.4 % (0-0.5); Lymphocytes Absolute Auto 2.31 K/mm3 (0.9-3.2); Lymphocytes Percent Auto 23.2 % (18.3-44.2); Mean Corpuscular HGB Conc 32.3 g/dl (32-36); Mean Corpuscular Hemoglobin 30.3 pg (26-34); Mean Corpuscular Volume 93.9 fl (80-100); Mean Platelet Volume 9.9 fl (7.4-10.4); Monocytes Absolute Auto 0.9 K/mm3 (0.1-0.6); Monocytes Percent Auto 9.2 % (2.6-8.5); Neutrophils Absolute Auto 6.5 K/mm3 (1.3-6.7); Neutrophils Percent Auto 64.9 % (45.5-73.1); Platelet Count Result 303 k/mm3 (150-375); Red Blood Count 4.09 M/mm3 (4.2-5.4)
[2023-02-03 05:41] LABS: Alanine Aminotransferase 561 U/L (6-35); Alkaline Phosphatase 342 U/L (38-126); Anion Gap 7 mmol/L (8-16); Aspartate Amino Transferase 354 U/L (14-36); Bilirubin,Total 1.3 mg/dL (0.2-1.3); Blood Urea Nitrogen 19 mg/dL (7-17); Calcium 9.6 mg/dL (8.4-10.2); Carbon Dioxide 28 mmol/L (22-30); Chloride 100 mmol/L (98-107); Estimated Glomerular Filt Rate > 60; Glucose 190 mg/dL (65-110); Magnesium 2.1 mg/dL (1.6-2.3); Phosphorus 4.8 mg/dL (2.5-4.5); Potassium 4.6 mmol/L (3.4-5.0); Sodium 135 mmol/L (137-145)
[2023-02-03 08:35] LABS: Glucose Point of Care 178 mg/dl (65-105)
[2023-02-03] MEDS: CLOPIDOGREL BISULFATE 75 MG TABLET PO (08:52)
[2023-02-03] MEDS: METOPROLOL SUCCINATE EXT REL 25 MG TABCR PO (08:52)
[2023-02-03] MEDS: ASPIRIN 81 MG CHEWABLE TABLET PO (08:52)
[2023-02-03] MEDS: ROSUVASTATIN 10 MG TABLET PO (08:52)
--- NOTE | 2023-02-03 08:52 | PM.PNCARD ---
Progress Note: A&P Assessment and Plan (1) NSTEMI (non-ST elevated myocardial infarction): Code(s): I21.4 - Non-ST elevation (NSTEMI) myocardial infarction Status: Acute Assessment and Plan: Presentation consistent with acute coronary syndrome/NSTEMI with stuttering chest pain over the preceding 2 days with more persistent chest pain nitroglycerin responsive with elevated troponin with risk factors including strong family history premature atherosclerosis, diabetes mellitus, history of tobacco abuse and hypertension. Taken to cardiac laboratory animal care veterinarian 02/02 s/p PCI w/ STEPHON x 1 to the LCX DAPT with ASA, Plavix for one year Continue statin Continue aggressive risk factor modification for CAD Will check an echo c/o lower abdomen and flank pain starting yesterday evening. Will order CT w/ contrast to evaluate for bleeding. If CT negative, OK for discharge today from a cardiac standpoint. Will arrange close outpatient follow up in our office. (2) Hypertension associated with chronic kidney disease due to type 2 diabetes mellitus: Code(s): E11.22 - Type 2 diabetes mellitus with diabetic chronic kidney disease; I12.9 - Hypertensive chronic kidney disease with stage 1 through stage 4 chronic kidney disease, or unspecified chronic kidney disease Status: Acute Assessment and Plan: BP improved from admission. Patient has reported lisinopril/ARIELLE-inhibitor allergy. Consider ARB if BP suboptimally controlled. Generally has been at goal during hospitalization. (3) Family history of premature CAD: Code(s): Z82.49 - Family history of ischemic heart disease and other diseases of the circulatory system Status: Acute Assessment and Plan: Aggressive medical management as above. (4) Hypertriglyceridemia: Code(s): E78.1 - Pure hyperglyceridemia Status: Acute Assessment and Plan: Goal LDL less than 70. Continue rosuvastatin. (5) Type 2 diabetes mellitus: Qualifiers: Diabetes mellitus complication status: with hyperglycemia Diabetes mellitus shelter insulin use: without shelter use Qualified Code(s): E11.65 - Type 2 diabetes mellitus with hyperglycemia Code(s): E11.9 - Type 2 diabetes mellitus without complications Status: Acute Assessment and Plan: Blood sugars elevated on presentation. Check hemoglobin A1c. Check blood sugars per protocol. Management per hospitalist service. Continue Jardiance 10 mg daily. (6) History of tobacco abuse: Code(s): Z87.891 - Personal history of nicotine dependence Status: Acute Assessment and Plan: Patient congratulated on recent smoking cessation achievement. Strongly advised not to resume particular given circumstances of CAD/NSTEMI. Subjective Date/time seen: 02/03/23 08:52 Interval history: Cardiology follow up for NSTEMI Complaining of lower abdomen and flank pain she rates at a 10/10. Pain decreases to a 3 to 4/10 with morphine. She reports significant discomfort in the groin with sheath pull yesterday and did have some bruising associated with this. She states that her abdominal and flank pain began last night. Vital signs and labs are stable. Review of Systems Review of Systems: Remainder of the review of systems is otherwise negative aside from that noted in the HPI. All systems reviewed & are unremarkable except as noted in HPI and below Constitutional: Constitutional: Reports as per HPI and Reports no additional constitutional complaints Eyes: Eyes: Reports as per HPI and Reports no additional eye complaints ENT: Reports system reviewed and no additional complaints, except as documented and Reports as per HPI Cardiovascular: Cardiovascular: Reports as per HPI and Reports no additional cardiovascular complaints Respiratory: Respiratory: Reports as per HPI and Reports no additional respiratory complaints Gastrointestinal: Gastrointestinal: Reports as per HPI and Re
[2023-02-03] MEDS: EMPAGLIFLOZIN 10 MG TABLET PO (08:53)
[2023-02-03] MEDS: GABAPENTIN 300 MG CAPSULE 600 MG PO ×2 (08:53→20:45)
--- NOTE | 2023-02-03 10:20 | PM.IMPN ---
Progress Note: A&P Assessment and Plan (1) NSTEMI (non-ST elevated myocardial infarction): Code(s): I21.4 - Non-ST elevation (NSTEMI) myocardial infarction Status: Acute Assessment and Plan: Patient with substernal chest pain associated with diaphoresis, nausea, shortness of breath. Radiating to the left arm. -strong family history -flat troponins -no EKG changes -appreciate cardiology evaluation and recommendations -remains on nitroglycerin infusion with increasing titration -patient stated that she may have had gallstones, CT scan of the chest abdomen pelvis was unremarkable -echocardiogram has been ordered -continue aspirin, heparin infusion -discussed with cardiology this morning, patient will be taken for angiography today -morphine for pain (2) Type 2 diabetes mellitus: Qualifiers: Diabetes mellitus shelter insulin use: without medical terminologist use Diabetes mellitus complication status: with hyperglycemia Qualified Code(s): E11.65 - Type 2 diabetes mellitus with hyperglycemia Code(s): E11.9 - Type 2 diabetes mellitus without complications Status: Acute Assessment and Plan: Continue Accu-Cheks and sliding scale in (3) Hyperlipidemia: Code(s): E78.5 - Hyperlipidemia, unspecified Status: Acute Assessment and Plan: Continue statin Plan DVT prophylaxis: Heparin infusion Stress ulcer prophylaxis: Not indicated Nutrition: NPO Code Status: Full Critical Care Time Spent: 32 minutes Discussed with Cardiology, patient will be taken to the cardiac catheterization for angiography Due to a high probability of clinically significant, life threatening deterioration, the patient required my highest level of preparedness to intervene emergently and I personally spent this critical care time directly and personally managing the patient. This critical care time included obtaining a history; examining the patient; pulse oximetry; ordering and review of studies; arranging urgent treatment with development of a management plan; evaluation of patient's response to treatment; frequent reassessment; and discussions with other providers. It was exclusive of separately billable procedures and treating other patients and teaching time. Please see Assessment and Plan section and the rest of the note for further information on patient assessment and treatment This dictation may have been done utilizing a voice recognition system. Attempts have been made to correct errors. However, there may be uncorrected grammatical, spelling, and recognitions errors present. Subjective Date/time seen: 02/03/23 10:20 Interval history: Reason for consult: Chest pain, NSTEMI requiring nitroglycerin infusion in the ICU 02/02/2023: Patient seen and examined the ICU, continues to complain of chest pain which has been intermittent in severity requiring titrating up the nitroglycerin infusion. Patient also complaining of nausea. Complains of shortness of breath but no diaphoresis. Patient is hemodynamically stable, afebrile, adequate urine Review of Systems Review of Systems: 12 point review of systems was assessed and was negative except as noted in the HPI Exam Narrative: General: Pleasant female complaining of chest pain HEENT:? Pupils equal and reactive, sclera is clear, poor dentition with lack of teeth Neck:? Supple Respiratory:? Clear to auscultation bilaterally, adequate air entry, no wheezing Cardiac:? S1-S2 is normal, has regular rate and Abdomen:? Soft, non tender, non distended, normoactive bowel sounds Extremities:? No edema, palpable pedal pulses Neuro:? Patient is awake, alert, oriented, answers to questions appropriately and follows simple commands in all extremities Skin:? Warm and dry Psych:? Normal mentation and affect Objective Data Vital Signs Vital Signs: Vital Signs - 24 hr 02/02/23 10:30 02/02/23 11:00 02/02/23 10:30 Temperature Pulse Rate 72
--- NOTE | 2023-02-03 10:40 | PM.DS ---
DS: Admitting Diagnosis Discharge Date 02/03/23 Admitting Diagnosis chest pain DS: Discharge Diagnosis Discharge Diagnosis (1) NSTEMI (non-ST elevated myocardial infarction): Code(s): I21.4 - Non-ST elevation (NSTEMI) myocardial infarction Status: Acute (2) Type 2 diabetes mellitus: Qualifiers: Diabetes mellitus prison insulin use: without buttermaker helper use Diabetes mellitus complication status: with hyperglycemia Qualified Code(s): E11.65 - Type 2 diabetes mellitus with hyperglycemia Code(s): E11.9 - Type 2 diabetes mellitus without complications Status: Acute (3) Hyperlipidemia: Code(s): E78.5 - Hyperlipidemia, unspecified Status: Acute DS: Summary Hospital Course Hospital Course: 42-year-old female with a past medical history of COPD, peripheral neuropathy and ?borderline diabetes? who presented to the ER with left chest pain jaw pain and arm pain.?? Presentation consistent with acute coronary syndrome/NSTEMI with stuttering chest pain over the preceding 2 days with more persistent chest pain nitroglycerin responsive with elevated troponin with risk factors including strong family history premature atherosclerosis, diabetes mellitus, history of tobacco abuse and hypertension. Taken to cardiac dairy and food laboratory assistant 02/02 s/p PCI w/ STEPHON x 1 to the LCX DAPT with ASA, Plavix for one year Continue statin Continue aggressive risk factor modification for CAD Will check an echo c/o lower abdomen and flank pain starting yesterday evening.? Will order CT w/ contrast to evaluate for bleeding.? If CT negative, OK for discharge today from a cardiac standpoint.? Please see above and med rec for details. Patient was discharged in stable condition with close outpatient follow-up by Family Medicine and Cardiology. Time Spent with Patient Time attestation: Total time spent providing and/or coordinating discharge services: Exam Narrative: General: No acute distress, alert and oriented per baseline HEENT: Atraumatic, normocephalic, mucous membranes moist CV: Regular rate and rhythm, S1, S2 Lungs: Clear to auscultation bilaterally, no rales or crackles noted, no wheezes, good air entry Abdomen: Soft, nontender, nondistended Extremities: Normal to inspection Skin: No rashes noted, no lesions or wounds seen Psych: Euthymic, normal affect DS: Data Data Completed and Pending Labs on day of discharge: Labs from last 24 hours 02/03/23 02/03/2323 07:56 04:48 23:12 WBC 10.0 RBC 4.09 L Hgb 12.4 12.8 Hct 38.4 40.1 MCV 93.9 MCH 30.3 MCHC 32.3 RDW 13.0 Plt Count 303 MPV 9.9 Immature Gran % (Auto) 0.4 Neut % (Auto) 64.9 Lymph % (Auto) 23.2 [place] % (Auto) 9.2 H Eos % (Auto) 1.8 Baso % (Auto) 0.5 Lymph # (Auto) 2.31 [place] # (Auto) 0.9 H Eos # (Auto) 0.2 Baso # (Auto) 0.1 Abs Immat Gran (auto) 0.04 H Absolute Neuts (auto) 6.5 Absolute Nucleated RBC 0.0 Nucleated RBC % 0.0 APTT Sodium 135 L Potassium 4.6 Chloride 100 Carbon Dioxide 28 Anion Gap 7 L BUN 19 H Creatinine 0.70 Estim Creat Clear Calc Not Reportable Estimated GFR > 60 Glucose 190 H POC Capillary Glucose 178 H Calcium 9.6 Phosphorus 4.8 H Magnesium 2.1 Total Bilirubin 1.3 AST 354 H ALT 561 H Alkaline Phosphatase 342 H Total Protein 7.0 Albumin 4.0 02/02/23 02/02/23 02/02/23 20:32 16:31 15:07 WBC RBC Hgb Hct MCV MCH MCHC RDW Plt Count MPV Immature Gran % (Auto) Neut % (Auto) Lymph % (Auto) [place] % (Auto) Eos % (Auto) Baso % (Auto) Lymph # (Auto) [place] # (Auto) Eos # (Auto) Baso # (Auto) Abs Immat Gran (auto) Absolute Neuts (auto) Absolute Nucleated RBC Nucleated RBC % APTT 37.4 H Sodium Potassium Chloride Carbon Dioxide Anion Gap BUN Creatinine E
--- NOTE | 2023-02-03 10:44 | PM.IMPN ---
Progress Note: A&P Assessment and Plan (1) NSTEMI (non-ST elevated myocardial infarction): Code(s): I21.4 - Non-ST elevation (NSTEMI) myocardial infarction Status: Acute Assessment and Plan: Patient with substernal chest pain associated with diaphoresis, nausea, shortness of breath. Radiating to the left arm. -strong family history -flat troponins -no EKG changes -appreciate cardiology evaluation and recommendations -remains on nitroglycerin infusion with increasing titration -patient stated that she may have had gallstones, CT scan of the chest abdomen pelvis was unremarkable -echocardiogram has been ordered -continue aspirin, heparin infusion -discussed with cardiology this morning, patient will be taken for angiography 02/02 -morphine for pain 02/03: doing well, ok for d/c per cardio (2) Type 2 diabetes mellitus: Qualifiers: Diabetes mellitus complication status: with hyperglycemia Diabetes mellitus termite exterminator helper insulin use: without snf use Qualified Code(s): E11.65 - Type 2 diabetes mellitus with hyperglycemia Code(s): E11.9 - Type 2 diabetes mellitus without complications Status: Acute Assessment and Plan: Continue Accu-Cheks and sliding scale Blood glucose reviewed 02/03 (3) Hyperlipidemia: Code(s): E78.5 - Hyperlipidemia, unspecified Status: Acute Assessment and Plan: Continue statin (4) Hepatitis: Code(s): K75.9 - Inflammatory liver disease, unspecified Status: Acute Assessment and Plan: Elevated LFTs, hepatitis a reactive, GI consult ordered and pending Plan DVT prophylaxis: Heparin infusion Stress ulcer prophylaxis: Not indicated Code Status: Full Subjective Date/time seen: 02/03/23 10:44 Interval history: No overnight events noted. No chest pain or shortness of breath. No nausea, vomiting or diarrhea. No fevers or chills. Still with abdominal pain. Review of Systems Review of Systems: 12 point review of systems was assessed and was negative except as noted in the HPI Exam Narrative: General: No acute distress, alert and oriented per baseline HEENT: Atraumatic, normocephalic, mucous membranes moist CV: Regular rate and rhythm, S1, S2 Lungs: Clear to auscultation bilaterally, no rales or crackles noted, no wheezes, good air entry Abdomen: Soft, TTP Extremities: Normal to inspection Skin: No rashes noted, no lesions or wounds seen Psych: Euthymic, normal affect Objective Data Vital Signs Vital Signs: Vital Signs - 24 hr 02/02/23 11:00 02/02/23 11:00 02/02/23 12:00 Temperature 98.9 F Pulse Rate 73 73 79 Pulse Rate [Bilateral Pedal (Dorsalis Pedis)] 73 79 Respiratory Rate 14 14 16 Blood Pressure 113/74 113/74 124/85 Pulse Oximetry 94 94 93 Oxygen Delivery 02/02/23 13:00 02/02/23 12:00 02/02/23 16:30 Temperature Pulse Rate 72 64 83 Pulse Rate [Bilateral Pedal (Dorsalis Pedis)] 72 Respiratory Rate 16 15 Blood Pressure 119/77 126/86 Pulse Oximetry 99 98 Oxygen Delivery 02/02/23 16:58 02/02/23 16:35 02/02/23 16:40 Temperature Pulse Rate 81 77 Pulse Rate [Bilateral Pedal (Dorsalis Pedis)] 72 Respiratory Rate 14 16 Blood Pressure 109/77 128/80 Pulse Oximetry 97 98 Oxygen Delivery 02/02/23 16:45 02/02/23 16:50 02/02/23 16:55 Temperature Pulse Rate 78 76 74 Pulse Rate [Bilateral Pedal (Dorsalis Pedis)] Respiratory Rate 16 13 13 Blood Pressure 110/65 116/72 111/67 Pulse Oximetry 98 98 97 Oxygen Delivery 02/02/23 14:00 02/02/23 16:00 02/02/23 18:00 Temperature Pulse Rate 68 64 72 Pulse Rate [Bilateral Pedal (Dorsalis Pedis)] Respiratory Rate Blood Pressure Pulse Oximetry Oxygen Delivery 02/02/23 17:15 02/02/23 17:30 02/02/23 17:45 Temperature Pulse Rate 77 83 78 Pulse Rate [Bilateral Pedal (Dorsalis Pedis)] 77 83 78 Respiratory Rate 13 18 18 Blood Pressure 115/8
[2023-02-03 11:24] LABS: Glucose Point of Care 299 mg/dl (65-105)
[2023-02-03] MEDS: polyethylene glycoL 3350 17 GM POWD.PACK PO (12:14)
[2023-02-03] MEDS: INSULIN ASPART (*BKC) 100 UNITS/ML SUB-Q ×2 (12:17→20:46)
--- NOTE | 2023-02-03 13:13 | WPDGICN ---
Assessment and Plan Assessment and plan (1) Alkaline phosphatase elevation: Code(s): R74.8 - Abnormal levels of other serum enzymes Status: Acute Assessment and Plan: CT scan shows:IMPRESSION: 1. No acute intra-abdominal/pelvic process. 2. Focal stranding at the right inguinal region consistent with expected changes of recent vascular access. No associated hematoma, active contrast extravasation, AV fistula or aneurysm. 3. Small sliding-type hiatal hernia. She has had a previous biliary stent. Therefore it is unlikely that she has a calculus or stricture the bile duct. (2) Transaminitis: Code(s): R74.01 - Elevation of levels of liver transaminase levels Status: Acute Assessment and Plan: Ischemic hepatopathy as a possible explanation. She had elevated blood pressure at admission with diastolic of 105. Transiently her blood pressure was as low as 91/56, then again 89/56. However I have just learned that her hepatitis a IgM antibody is positive. I discussed hepatitis with the patient. I told her that this would not explain her abdominal pain but does explain her headache. I reassured her that hepatitis a does not become chronic, as does hepatitis-B and C. Explain it is fecal oral route of transmission therefore it is important for her to wash her hands (3) NSTEMI (non-ST elevated myocardial infarction): Code(s): I21.4 - Non-ST elevation (NSTEMI) myocardial infarction Status: Acute Assessment and Plan: She was treated with coronary angiography and stenting of the circumflex artery which was severely stenotic. She is now having some abdominal pain which may be secondary to that procedure. Plan I would like to recheck her LFTs in the morning. I suspect than that we can discharge her. GI Consult Note Consult date/time: 02/03/23 13:13 HPI: Hannah Granados is a 42 year old female who was admitted 3 days ago with severe chest pain that had began the day prior. She described is 10 of 10. She was treated with nitroglycerin, beta blockers and aspirin. The pain persisted the next day. She was transferred to ICU for intravenous nitroglycerin and then underwent cardiac catheterization. She was found have severe stenosis of the distal circumflex artery which was stented. She has also been noted to have elevation of her liver enzymes. Initially only the alkaline phosphatase was slightly elevated at 135 but now they are all elevated. Alkaline phosphatase is now up to 342 AST and ALT have jumped to 354 and 561 respectively. Bilirubin remains normal. An ultrasound shows normal gallbladder and bile ducts. Today she developed pain across the lower abdomen and radiating bilaterally towards the back. A CT scan did not show any thing such as a hematoma although she does have ecchymosis in her abdomen and a hematoma in the right groin secondary to her catheterization. Review of Systems Review of Systems: All systems reviewed & are unremarkable except as noted in HPI and below PMFSH Past Medical History Medical History Bladder prolapse No surgical intervention History of biliary stent insertion History of CHF (congestive heart failure) Peripheral neuropathy Tobacco dependence in remission Surgical History Surgical History History of total hysterectomy with bilateral salpingo-oophorectomy (BSO) History of tubal ligation Family History Family History Mother , at 59 years old Family history of premature CAD, Onset Age: 29 Hx of CABG, Onset Age: 47 Diabetes mellitus COPD (chronic obstructive pulmonary disease) with emphysema CHF (congestive heart failure) Grandparent Family history of premature CAD Father Unknown family medical history Social History Social History (Reviewed 02/03/23 @ 13:14 by
[2023-02-03] MEDS: PERFLUTREN LIPID MICROSPHERES 1.5 ML VIAL DILUTED TO 10 ML TOTAL VOLUME IV PUSH (13:49)
--- NOTE | 2023-02-03 15:00 | IVDEFINITY ---
Prior to administration of IV Definity the patient was educated on the risks and benefits of the imaging enhancing agent including potential adverse side effects. The patient verbalized understanding. Allergies were verified. No exclusion criteria were identified and at least one of the following inclusion criteria were met: 1) physician request, 2) patient technically difficult to image (per the [place] [employer] guidelines of two or more segments not discernable within the apical view), or 3) questionable left ventricular function. ?
[2023-02-03 17:06] LABS: Glucose Point of Care 161 mg/dl (65-105)
[2023-02-03 19:43] LABS: Glucose Point of Care 283 mg/dl (65-105)
[2023-02-04 04:10] VITALS: BP 131/80; PULSE 61; RESP 18; TEMP 36.4; O2SAT 97
[2023-02-04] MEDS: MORPHINE SULFATE (*CRX) 2 MG/ML INJ IV PUSH ×3 (04:30→17:55)
[2023-02-04 04:47] LABS: Alanine Aminotransferase 347 U/L (6-35); Albumin Level 3.9 g/dL (3.5-5.1); Alkaline Phosphatase 286 U/L (38-126); Aspartate Amino Transferase 102 U/L (14-36); Bilirubin,Total 0.8 mg/dL (0.2-1.3); Lipase 129 U/L (23-300)
--- NOTE | 2023-02-04 06:08 | PC.NURSE ---
This patient, Hannah Granados, was transferred to [facility] on 02/04/23 at 0608. Personal belongings sent with patient. Report given to SOUMYA Daniel. Appropriate documentation sent with patient.
--- NOTE | 2023-02-04 06:42 | WPDGIPROGNO ---
Progress Note: A&P Assessment and Plan (1) Alkaline phosphatase elevation: Code(s): R74.8 - Abnormal levels of other serum enzymes Status: Acute Assessment and Plan: CT scan shows:IMPRESSION: 1. No acute intra-abdominal/pelvic process. 2. Focal stranding at the right inguinal region consistent with expected changes of recent vascular access. No associated hematoma, active contrast extravasation, AV fistula or aneurysm. 3. Small sliding-type hiatal hernia. She has had a previous biliary stent. Therefore it is unlikely that she has a calculus or stricture the bile duct. (2) Transaminitis: Code(s): R74.01 - Elevation of levels of liver transaminase levels Status: Acute Assessment and Plan: Ischemic hepatopathy as a possible explanation. She had elevated blood pressure at admission with diastolic of 105. Transiently her blood pressure was as low as 91/56, then again 89/56. However I have just learned that her hepatitis a IgM antibody is positive. I discussed hepatitis with the patient. I told her that this would not explain her abdominal pain but does explain her headache. I reassured her that hepatitis a does not become chronic, as does hepatitis-B and C. Explain it is fecal oral route of transmission therefore it is important for her to wash her hands (3) NSTEMI (non-ST elevated myocardial infarction): Code(s): I21.4 - Non-ST elevation (NSTEMI) myocardial infarction Status: Acute Assessment and Plan: She was treated with coronary angiography and stenting of the circumflex artery which was severely stenotic. She is now having some abdominal pain which may be secondary to that procedure. (4) Abdominal pain: Code(s): R10.9 - Unspecified abdominal pain Status: Acute Assessment and Plan: her pain which started a couple days ago, after her catheterization persist that is constant but more localized to the right side now. Her CT scan which are reviewed does not show any etiology such as hematoma. (5) Constipation: Code(s): K59.00 - Constipation, unspecified Status: Acute Assessment and Plan: She has not had a bowel movement since admission. Perhaps this is at least partly responsible for her pain. Will order a laxative. (6) Hepatitis: Code(s): K75.9 - Inflammatory liver disease, unspecified Status: Acute Assessment and Plan: Serology for hepatitis a IgM is positive. LFTs are decreasing. I explained her that Hepatitis A is self-limiting and should resolve spontaneously. Plan I would like to recheck her LFTs in the morning. I suspect than that we can discharge her. Subjective Date/time seen: 02/04/23 06:42 She is still having pain in the mid to right abdomen and towards the back which is constant. She has requested pain medication for that which helped somewhat. She is fairly certain this all started after her catheterization. she has not had a bowel movement since admission. I did tell her that her liver enzymes are coming down. I explained again that hepatitis-A is self-limiting and never chronic but I would recommend that she have follow-up to get LFTs checked in 2-4 weeks. She states that she does not have a primary care provider but when she gets back home she will get a general practitioner and bellman captain for follow-up. Exam Const: General: cooperative, healthy appearing and uncomfortable Orientation/consciousness: patient oriented x3 HENMT: Head: normal to inspection Ears: hearing grossly normal bilaterally Mouth: Yes Normal oral and palatal mucosa present Eyes: General: appearance normal, both eyes and all related structures Neck: Neck: normal visual inspection Chest: Chest palpation & inspection: normal inspection of the chest Resp: Effort & Inspection: normal respiratory effort Auscultation: clear to auscultation bilaterally Cardio: Rate: regular rate Rhythm: regular rhythm GI: Inspe
[2023-02-04 08:29] LABS: Glucose Point of Care 323 mg/dl (65-105)
[2023-02-04] MEDS: CLOPIDOGREL BISULFATE 75 MG TABLET PO (08:33)
[2023-02-04] MEDS: EMPAGLIFLOZIN 10 MG TABLET PO (08:33)
[2023-02-04] MEDS: ASPIRIN 81 MG CHEWABLE TABLET PO (08:33)
[2023-02-04] MEDS: GABAPENTIN 300 MG CAPSULE 600 MG PO ×2 (08:33→20:38)
[2023-02-04] MEDS: MAGNESIUM CITRATE 300 ML BTL PO (08:34)
[2023-02-04] MEDS: INSULIN ASPART (*BKC) 100 UNITS/ML SUB-Q ×3 (08:35→17:49)
[2023-02-04 08:41] VITALS: PULSE 81
[2023-02-04] MEDS: METOPROLOL SUCCINATE EXT REL 25 MG TABCR PO (08:41)
[2023-02-04 12:25] LABS: Glucose Point of Care 309 mg/dl (65-105)
--- NOTE | 2023-02-04 13:12 | PM.PNCARD ---
Progress Note: A&P Assessment and Plan (1) NSTEMI (non-ST elevated myocardial infarction): Code(s): I21.4 - Non-ST elevation (NSTEMI) myocardial infarction Status: Acute Assessment and Plan: Presentation consistent with acute coronary syndrome/NSTEMI with stuttering chest pain over the preceding 2 days with more persistent chest pain, nitroglycerin responsive with elevated troponin with risk factors including strong family history premature atherosclerosis, diabetes mellitus, history of tobacco abuse and hypertension. Taken to cardiac denture laboratory technician 02/02 s/p PCI w/ STEPHON x 1 to the LCX DAPT with ASA, Plavix for one year Continue statin Continue aggressive risk factor modification for CAD Echocardiogram with LVEF 65-70%, mild MR. Abdominal pain workup shows CTA negative for bleeding, hematoma. Pain most likely due to constipation. (2) Hypertension associated with chronic kidney disease due to type 2 diabetes mellitus: Code(s): E11.22 - Type 2 diabetes mellitus with diabetic chronic kidney disease; I12.9 - Hypertensive chronic kidney disease with stage 1 through stage 4 chronic kidney disease, or unspecified chronic kidney disease Status: Acute Assessment and Plan: BP improved from admission. Patient has reported lisinopril/ARIELLE-inhibitor allergy. Consider ARB if BP suboptimally controlled. Generally has been at goal during hospitalization. (3) Family history of premature CAD: Code(s): Z82.49 - Family history of ischemic heart disease and other diseases of the circulatory system Status: Acute Assessment and Plan: Aggressive medical management as above. (4) Hypertriglyceridemia: Code(s): E78.1 - Pure hyperglyceridemia Status: Acute Assessment and Plan: Goal LDL less than 70. Continue rosuvastatin. (5) Type 2 diabetes mellitus: Qualifiers: Diabetes mellitus residential insulin use: without residential use Diabetes mellitus complication status: with hyperglycemia Qualified Code(s): E11.65 - Type 2 diabetes mellitus with hyperglycemia Code(s): E11.9 - Type 2 diabetes mellitus without complications Status: Acute Assessment and Plan: Blood sugars elevated on presentation. Check hemoglobin A1c. Check blood sugars per protocol. Management per hospitalist service. Continue Jardiance 10 mg daily. (6) History of tobacco abuse: Code(s): Z87.891 - Personal history of nicotine dependence Status: Acute Assessment and Plan: Patient congratulated on recent smoking cessation achievement. Strongly advised not to resume particular given circumstances of CAD/NSTEMI. Plan From a cardiac standpoint, patient can be discharged. Subjective Date/time seen: 02/04/23 13:12 Interval history: Cardiology follow up for NSTEMI Continues to have abdominal pain. Still has not had a bowel movement. No chest pain. No bleeding issues. Review of Systems Review of Systems: + Abdominal pain. - Chest pain Exam Const: General: no acute distress HENMT: Mouth: Yes moist mucous membranes Eyes: General: appearance normal, both eyes and all related structures Sclera: sclerae normal Neck: Neck: supple Resp: Effort & Inspection: normal respiratory effort Cardio: Rate: regular rate Rhythm: regular rhythm Heart sounds: no murmurs Skin: General skin exam: normal color Neuro: Speech: normal speech Psych: Mental Status: mental status grossly normal Affect: normal affect Objective Data Vital Signs Vital Signs: Vital Signs - 24 hr 02/03/23 16:00 02/03/23 14:00 02/03/23 16:00 Temperature 36.8 C Pulse Rate 64 64 73 Respiratory Rate 20 Blood Pressure 119/82 Pulse Oximetry 97 Oxygen Delivery 02/03/23 18:00 02/03/23 19:40 02/03/23 20:00 Temperature 36.6 C Pulse Rate 66 65 Respiratory Rate 18 Blood Pressure 111/60 Pulse Oximetry 97 Oxygen Delivery Room Air 02/03/23 23:41 02/04/23
--- NOTE | 2023-02-04 15:16 | PCCCNOTE ---
On 02/04/23, the student, Alexus Locke, provided care and completed [facility] documentation on this patient. I have reviewed the student's documentation and agree with the findings.
[2023-02-04 16:00] VITALS: BP 131/81; PULSE 75; RESP 16; TEMP 36.6; O2SAT 98
[2023-02-04 17:22] LABS: Glucose Point of Care 352 mg/dl (65-105)
[2023-02-04] MEDS: BISACODYL 10 MG SUPPOSITORY RECTAL (17:48)
[2023-02-04] MEDS: polyethylene glycoL 3350 17 GM POWD.PACK PO (17:48)
--- NOTE | 2023-02-04 17:48 | PM.IMPN ---
Progress Note: A&P Assessment and Plan (1) NSTEMI (non-ST elevated myocardial infarction): Code(s): I21.4 - Non-ST elevation (NSTEMI) myocardial infarction Status: Acute Assessment and Plan: Patient with substernal chest pain associated with diaphoresis, nausea, and shortness of breath with radiation to the left arm. -strong family history -flat troponins -no EKG changes -appreciate cardiology evaluation and recommendations -was on nitroglycerin infusion with increasing titration -patient stated that she may have had gallstones, CT scan of the chest abdomen pelvis was unremarkable -echocardiogram normal -C performed 02/02 showing a discrete 95-99% stenosis in the circumflex prior to the 1st posterior branch. PCI and STEPHON placed Continue medcial mangement with DAPT, crestor and mtorpolol (2) Type 2 diabetes mellitus: Qualifiers: Diabetes mellitus half-way insulin use: without long distance operator use Diabetes mellitus complication status: with hyperglycemia Qualified Code(s): E11.65 - Type 2 diabetes mellitus with hyperglycemia Code(s): E11.9 - Type 2 diabetes mellitus without complications Status: Acute Assessment and Plan: A1c 9.8. The patient's blood glucose was reviewed on 02/04 Glucose poorly controlled. Continue AccuCheks covering with sliding scale. Hypoglycemia protocol available as needed. No metformin due to elevated LFTs. Empagliflozin started and will advance the dose. Add Amaryl and Januvia. Continue to monitor (3) Hyperlipidemia: Code(s): E78.5 - Hyperlipidemia, unspecified Status: Acute Assessment and Plan: Continue statin (4) Hepatitis: Code(s): K75.9 - Inflammatory liver disease, unspecified Status: Acute Assessment and Plan: Patient with elevated LFTs Hepatitis panel showing reactive Hepatitis A IgM. GI consulted and appreciate their input LFTs improving. Monitor closely while on Crestor to make sure levels trend down. Symptomatic care. (5) Abdominal pain: Code(s): R10.9 - Unspecified abdominal pain Status: Acute Assessment and Plan: Suspect some of the abdominal pain related to the hepatitis given the pain located in the right upper quadrant. CT abdomen pelvis 02/01 showed no acute findings. Abdominal ultrasound 02/[address] abdomen and pelvis 02/03 again showing no acute intra-abdominal process Lipase normal today. No results with the magnesium citrate. Will order suppository and schedule MiraLax. Plan DVT prophylaxis: SDs Stress ulcer prophylaxis: Not indicated Code Status: Full Subjective Date/time seen: 02/04/23 17:48 Interval history: 42yo female with DM, peripheral neuropathy, COPD and tobacco abuse presents with chest pain. Assuming care. Chart reviewed. Patient complaining of persistent abdominal pain particularly in the right upper quadrant. Passing flatus but no bowel movement since admission. Chest pain. No shortness of breath. Nauseous today but no vomiting. Not eating much. Exam Narrative: AF 97.6 131/80 81 18 97% ra Gen - NARD Chest - CTA bilaterally, nml RR CV - RRR S1/S2 Abd - Soft, ND, +BS, mild diffuse tenderness without guarding Ext - No pedal edema Psych - Nml mood and affect Skin - Warm and dry Objective Data Vital Signs Vital Signs: Vital Signs - 24 hr 02/03/23 18:00 02/03/23 19:40 02/03/23 20:00 Temperature 97.8 F Pulse Rate 66 65 Respiratory Rate 18 Blood Pressure 111/60 Pulse Oximetry 97 Oxygen Delivery Room Air 02/03/23 23:41 02/04/23 04:10 02/04/23 08:41 Temperature 97.6 F Pulse Rate 68 61 81 Respiratory Rate 18 18 Blood Pressure 131/80 Pulse Oximetry 98 97 Oxygen Delivery 02/04/23 08:00 Temperature Pulse Rate Respiratory Rate Blood Pressure Pulse Oximetry Oxygen Delivery Room Air Intake/Output Intake/Output: Intake & Output 02/01/23 02/02/23
[2023-02-04 20:00] VITALS: PULSE 75; RESP 16; O2SAT 98
[2023-02-04 20:47] LABS: Glucose Point of Care 168 mg/dl (65-105)
[2023-02-04] MEDS: oxyCODONE/ACETAMINOPHEN (*CRX) 10-325 MG TABLET 1 TAB PO (21:14)
[2023-02-04 22:11] VITALS: BP 125/76; PULSE 65; RESP 20; TEMP 36.4; O2SAT 98
[2023-02-05 06:00] VITALS: BP 128/88; PULSE 63; RESP 20; TEMP 36.1; O2SAT 99
[2023-02-05 07:42] LABS: Alanine Aminotransferase 228 U/L (6-35); Alkaline Phosphatase 234 U/L (38-126); Anion Gap 6 mmol/L (8-16); Aspartate Amino Transferase 52 U/L (14-36); Bilirubin,Total 0.5 mg/dL (0.2-1.3); Blood Urea Nitrogen 20 mg/dL (7-17); Calcium 9.3 mg/dL (8.4-10.2); Carbon Dioxide 32 mmol/L (22-30); Chloride 97 mmol/L (98-107); Estimated Glomerular Filt Rate > 60; Glucose 233 mg/dL (65-110); Sodium 135 mmol/L (137-145)
[2023-02-05] MEDS: polyethylene glycoL 3350 17 GM POWD.PACK PO (08:26)
[2023-02-05] MEDS: ACETAMINOPHEN 325 MG TABLET 650 MG PO (08:26)
[2023-02-05] MEDS: EMPAGLIFLOZIN 25 MG TABLET PO (08:27)
[2023-02-05] MEDS: ROSUVASTATIN 20 MG TABLET PO (08:27)
[2023-02-05] MEDS: GLIMEPIRIDE 1 MG TABLET PO (08:27)
[2023-02-05] MEDS: ASPIRIN 81 MG CHEWABLE TABLET PO (08:27)
[2023-02-05] MEDS: CLOPIDOGREL BISULFATE 75 MG TABLET PO (08:27)
[2023-02-05] MEDS: GABAPENTIN 300 MG CAPSULE 600 MG PO (08:27)
[2023-02-05 08:28] VITALS: PULSE 62
[2023-02-05] MEDS: METOPROLOL SUCCINATE EXT REL 25 MG TABCR PO (08:28)
[2023-02-05 08:29] LABS: Glucose Point of Care 240 mg/dl (65-105)
[2023-02-05] MEDS: INSULIN ASPART (*BKC) 100 UNITS/ML SUB-Q (08:30)
--- NOTE | 2023-02-05 10:42 | PCNFU ---
Nutrition Follow-Up Complete: Altered nutrition related lab values related to new onset type 2 diabetes as evidenced by Hgb A1C 9.8% Meet estimated nutrition needs - progressing toward goal Goal: Pt current nutrition is Heart healthy, diabetic consistent carb diet- 100% intakes. Glucerna BID for additional 220 kcal and 10 g protein each. Nutrition recommendation: Continue current nutrition care plan. Pt will benefit from certified adapted physical educator consult Last recorded weight is 76.5 kg. Bowel Motility: +1 BM 02/05/23 Labs Reviewed: 02/05/23: NA 135, BUN 20, Gly 244, A1C 9.8 Meds Noted: Insulin Skin: WNL Additional Notes: New diagnosis of diabetes. Pt said she wad prediabetic and had hypoglycemia prior to this hospitalization. She does not have a primary care doctor where she lives in [facility]. Understands she needs to find one on discharge. Pt said her daughter whom she lives with moved while she has been in the hospital. Pt has poor dentition. Basic diabetes education given. Monitoring intakes, labs, weights, plan of care Follow up in 3 days
[2023-02-05 12:33] LABS: Glucose Point of Care 148 mg/dl (65-105)
[2023-02-05 14:00] VITALS: BP 122/68; PULSE 62; RESP 18; TEMP 36.2; O2SAT 99
--- NOTE | 2023-02-05 15:07 | PM.DS ---
DS: Admitting Diagnosis Discharge Date 02/05/23 Admitting Diagnosis Chest pain DS: Discharge Diagnosis Discharge Diagnosis (1) NSTEMI (non-ST elevated myocardial infarction): Code(s): I21.4 - Non-ST elevation (NSTEMI) myocardial infarction Status: Acute (2) Type 2 diabetes mellitus: Qualifiers: Diabetes mellitus longterm insulin use: without longterm use Diabetes mellitus complication status: with hyperglycemia Qualified Code(s): E11.65 - Type 2 diabetes mellitus with hyperglycemia Code(s): E11.9 - Type 2 diabetes mellitus without complications Status: Acute (3) Hyperlipidemia: Code(s): E78.5 - Hyperlipidemia, unspecified Status: Acute (4) Abdominal pain: Code(s): R10.9 - Unspecified abdominal pain Status: Acute (5) Hepatitis A: Code(s): B15.9 - Hepatitis A without hepatic coma Status: Acute DS: Summary Hospital Course Reason for hospitalization: 42yo female with DM, peripheral neuropathy, COPD and tobacco abuse presents with chest pain. Please see H&P for details. Hospital Course: Patient with substernal chest pain that radiated to the left arm associated with diaphoresis, nausea, and shortness of breath. Troponin was elevated to 0.196. No EKG changes. She was started on nitroglycerin infusion. Cardiology consulted. CXR was clear. CT chest showed no acute findings. CT scan abdomen pelvis was unremarkable. Echo showing EF 65-70%. LHC performed 02/02 showing a discrete 95-99% stenosis in the circumflex prior to the 1st posterior branch. PCI with STEPHON placed Started on medical management with DAPT, Crestor and metoprolol. Patient has diet-controlled DM but she had hyperglycemia here. A1c was 9.8. The patient's blood glucose was monitored with AccuCheks covering with sliding scale.? Hypoglycemia protocol was available as needed.?No metformin due to elevated LFTs. Empagliflozin, Januvia and Amaryl started. Patient with elevated LFTs. Hepatitis panel showing reactive Hepatitis A IgM c/w acute hepatitis A. GI consulted and appreciate their input. LFTs improving. She was having abdominal pain felt related to the hepatitis given the pain located in the right upper quadrant. CT abdomen pelvis 02/01 showed no acute findings. Abdominal ultrasound 02/[address] abdomen and pelvis 02/03 again showing no acute intra-abdominal process. Lipase normal. She was having constipation symptoms which was treated. She had clinical improvement. She was able to be discharged home on 02/05/23. She states she will be following up with her doctor back in [place] and he has arranged for her to see a local Phlebotomist Medical Lab Assistant. Patient going back to [place] today and requested prescriptions printed which was done. Status at Discharge Cognitive/behavioral status at discharge: stable Time Spent with Patient Time attestation: Total time spent providing and/or coordinating discharge services: 36 minutes Time spent: Greater than 30 minutes Exam Narrative: AF 97.0 128/88 62 20 99% ra Gen - NARD HEENT - poor dentition Chest - CTA bilaterally, nml RR CV - RRR S1/S2 Abd - Soft, ND, +BS, NT Ext - No pedal edema Psych - Nml mood and affect Skin - Warm and dry DS: Data Data Completed and Pending Labs on day of discharge: Labs from last 24 hours 02/05/23 02/05/23 02/05/23 12:26 08:22 07:21 Sodium 135 L Potassium 4.0 Chloride 97 L Carbon Dioxide 32 H Anion Gap 6 L BUN 20 H Creatinine 0.80 Estim Creat Clear Calc Not Reportable Estimated GFR > 60 Glucose 233 H POC Capillary Glucose 148 H 240 H Calcium 9.3 Total Bilirubin 0.5 AST 52 H ALT 228 H Alkaline Phosphatase 234 H Total Protein 7.0 Albumin 4.0 02/04/23 02/04/23 20:36 17:18 Sodium Potassium Chloride Carbon Dioxide Anion Gap BUN Creatinine Estim Creat Clear Calc Estimated GFR Glucose POC Capillary
--- NOTE | 2023-02-05 16:37 | PC.NURSE ---
Discharge packet reviewed with patient. Pt reminded to continue to take all of her medications as prescribed. To fill her prescriptions as soon as possible, and to check blood sugars. Pt verbalized understanding and states that she will see her MDs once she gets home to [place].
== END 2023-02-05 16:39 | disposition home or self-care (01) | DRG 174 ==
LOC: ANHED 18:57 → ANHIMU 21:15 → ANHICU 02-01 09:42 → ANHIMU 02-03 04:05 → ANH3MED 02-04 06:20
PROVIDERS: Internal Medicine; Internal Medicine Cardiovascular Disease; Internal Medicine Gastroenterology; Specialist; Admitting Provider Internal Medicine; Emergency Provider Student in an Organized Health Care Education/Training Program; Visit Provider Internal Medicine
PROC: 4A023N7 Measurement of Cardiac Sampling and Pressure, Left Heart, Percutaneous Approach (ICD-10-PCS; CPT 93452; principal; 2023-02-02 08:30)
PROC: 027034Z Dilation of Coronary Artery, One Artery with Drug-eluting Intraluminal Device, Percutaneous Approach (ICD-10-PCS; CPT 92928; 2023-02-02 08:30)
DX: I21.4 Non-ST elevation (NSTEMI) myocardial infarction (principal); E78.5 Hyperlipidemia, unspecified; B15.9 Hepatitis A without hepatic coma; I25.10 Atherosclerotic heart disease of native coronary artery without angina pectoris; E11.42 Type 2 diabetes mellitus with diabetic polyneuropathy; J44.9 Chronic obstructive pulmonary disease, unspecified; I12.9 Hypertensive chronic kidney disease with stage 1 through stage 4 chronic kidney disease, or unspecified chronic kidney disease; K59.00 Constipation, unspecified; E11.65 Type 2 diabetes mellitus with hyperglycemia; Z87.891 Personal history of nicotine dependence; Z86.73 Personal history of transient ischemic attack (TIA), and cerebral infarction without residual deficits; Z90.710 Acquired absence of both cervix and uterus; Z90.722 Acquired absence of ovaries, bilateral; Z82.49 Family history of ischemic heart disease and other diseases of the circulatory system
CPT/HCPCS: 36415; 71046; 71250; 74176; 74177; 76705; 80053; 80061; 80074; 80076; 80307; 82948; 83036; 83690; 83735; 83880; 84100; 84484; 85014; 85018; 85025; 85610; 85730; 93005; 93458; 96361; 96372; A9270; C1725; C1769; C1874; C1887; C1894; C8929; C9600; G0378; J0461; J0583; J1644; J1650; J1815; J2250; J2270; J2305; J2405; J3010; J7030; J7040; J7120; Q9957; Q9967